=== PATIENT | male | born 1955 | race Caucasian/White ===

== ENCOUNTER 2018-12-05 16:49 | Outpatient (CLI) ==
[2013-08-16 06:11] VITALS: BMI 31.8
== END 2018-12-05 17:11 | disposition short-term general hospital (02) ==
LOC: AMBL 16:49
PROVIDERS: ATTEND Emergency Medicine
DX: R55 Syncope and collapse (principal); R00.0 Tachycardia, unspecified; R73.9 Hyperglycemia, unspecified

== ENCOUNTER 2023-12-02 14:59 | Inpatient (IN) ==
[2023-12-02 15:20] VITALS: BMI 29.9
--- NOTE | 2023-12-02 16:05 | ED.PDOC ---
General ED Provider: Dr. KALEIGH STEPHENS MD Chief Complaint: Dizziness Stated Complaint: 68 years old male past medical history of liver cirrhosis secondary to liver disease, BPH coming to the emergency room for altered mental status. As per patient's friend patient was at the bank and he seemed to be confused did not know the time or the year and the patient has been more confused lately she was brought into the emergency room for evaluation. Patient is awake and alert to self and place but not to time he denies any chest pain, shortness of breath, headache, abdominal pain, nausea, vomiting, changes in bowel or urine. Time Seen by Provider: 12/02/23 15:07 Information Source: Patient Primary Care Provider: JULIO C HART Nursing and Triage Documentation Reviewed and Agree: Yes What is Opioid Naive?: *Opioid Naive implies the patient is not already taking opioids or not chronically receiving opioids on a daily basis. *PRN dosing is not "usually" associated with tolerance. *Patients are at higher risk of over-sedation and aspiration. What is Opioid Tolerant?: *Opioid Tolerance implies less than the expected response to an opioid. *Acquired tolerance is defined by the patient taking 60mg of oral morphine daily (or equianalgesic dose of another opioid) for 1 week or more. *Often associated with chronic pain. *May take more than usual dose to achieve desired pain control. Review of Systems Review Of Systems Constitutional: Reports No symptoms [facility] Medical History Failure of fundoplication Esophagogasatric Fundoplication: History of tif procedure with GI bleed. K91.89 - Other postprocedural complications and disorders of digestive system (ICD-10) Hypertension I10 - Essential (primary) hypertension (ICD-10) Hyperlipidemia E78.5 - Hyperlipidemia, unspecified (ICD-10) Fatty liver K76.0 - Fatty (change of) liver, not elsewhere classified (ICD-10) Diabetes mellitus E11.9 - Type 2 diabetes mellitus without complications (ICD-10) Arthritis M19.90 - Unspecified osteoarthritis, unspecified site (ICD-10) Social History Smoking and tobacco status: Former smoker Surgical History History of fundoplication Z98.890 - Other specified postprocedural states (ICD-10) H/O endoscopy Z98.890 - Other specified postprocedural states (ICD-10) History of cardiac catheterization WNL Z98.890 - Other specified postprocedural states (ICD-10) Physical Exam Physical Exam Appearance: Reports Well-appearing Respiratory: Reports Airway patent, Breath sounds clear and Breath sounds equal Cardiovascular: Reports RRR, Pulses normal, No rub and No murmur GI/: Reports Soft, Nontender, No masses and Bowel sounds normal Musculoskeletal: Reports Normal strength, ROM intact and Edema (Bilateral lower extremities) Skin: Reports Warm and Normal color Neurological: Reports Sensation intact and Motor intact Psychiatric: Reports Affect appropriate Interpretation EKG Interpretation EKG Interpretation By: ED Physician Time of EKG #1: 15:53 Rate: Normal Rhythm: Sinus Ectopy: None [place]: NL Interpretation: RBBB, no signs of acute ischemia Course Course 12/02/23 16:11 12/02/23 16:11 Orders, Labs, Meds: Lab Review 12/02/23 16:11 WBC 3.91 L RBC 4.04 L Hgb 12.4 L Hct 36.1 L MCV 89.4 MCH 30.7 MCHC 34.3 RDW Coeff of Luis Daniel 16.1 H Plt Count 129 L Immature Gran % (Auto) 0.3 Neut % (Auto) 54.5 Lymph % (Auto) 26.6 [place] % (Auto) 11.0 H Eos % (Auto) 6.1 Baso % (Auto) 1.5 Neut # (Auto) 2.1 Lymph # (Auto) 1.0 [place] # (Auto) 0.4 Eos # (Auto) 0.2 Baso # (Auto) 0.1 Immature Gran # (Auto) 0.0 Sodium 139.7 Potassium 3.55 Chloride 112.8 H Carbon Dioxide 18.3 L Anion Gap 12.15 BUN 13.9 Creatinine 0.83 Estimated GFR (MDRD) 92.00 BUN/Creatinine Ratio 16.74 Glucose 187.4 H Lactic Acid 3.94 H Calcium 8.87 Total Bilirubin 3.54 H AST 36.3 ALT 22.5 Alkaline Phosphatase 54.9 L Ammonia 116.7 H Troponin I < 0.012 NT-Pro-B Natriuret Pep 321 H Total Protein 5.94 L Albumin 3.37 L Globulin 2.57 Albumin/Globulin Ratio 1.31 Orders Category Date Time Status EKG-(ED ONLY) Stat CARDIO 12/02/23 15:50 Ordered ACTIVITY .Up With Assistance CARE 12/02/23 17:02 Active GIVE HS SNACK 2100 CARE 12/02/23 17:03 Active INTAKE & OUTPUT Q8HR CARE 12/02/23 17:02 Active IP: INSERT SALINE LOCK ONCE CARE 12/02/23 17:02 Active IV ACCESS ONCE CARE 12/02/23 15:50 Active VITAL SIGNS Q4HR CARE 12/02/23 17:03 Active ADA 1800 DOMINIC. DIET DIETARY 12/02/23 Dinner Ordered HS SNACK DIETARY 12/02/23 Dinner Ordered AMMONIA Routine LAB 12/03/23 06:00 Ordered AMMONIA Stat LAB 12/02/23 16:11 Completed BLOOD CULTURE Stat LAB 12/02/23 16:11 Received CBC W/ AUTO DIFF DAILY@0600 LAB 12/03/23 06:00 Ordered CBC W/ AUTO DIFF DAILY@0600 LAB 12/04/23 06:00 Ordered CBC W/ AUTO DIFF Stat LAB 12/02/23 16:11 Completed CMP [COMPREHENSIVE METABOLIC PANEL] Stat LAB 12/02/23 16:11 Completed COMPREHENSIVE METABOLIC PANEL DAILY@0600 LAB 12/03/23 06:00 Ordered COMPREHENSIVE METABOLIC PANEL DAILY@0600 LAB 12/04/23 06:00 Ordered COVID [SARS COV-2 RNA RAPID KELSEY] Stat LAB 12/02/23 16:45 Received LACTIC ACID Stat LAB 12/02/23 16:11 Completed NT-PROBNP(ED) Stat LAB 12/02/23 16:11 Completed TROPONIN I Stat LAB 12/02/23 16:11 Completed URINALYSIS C & S IF INDICATED Stat LAB 12/02/23 15:48 Uncollected URINE DRUG SCREEN (RAPID FOR ED) [DRUG SCREEN, URINE, LAB 12/02/23 16:05 Uncollected RAPID] Stat Lactulose Meds 12/02/23 01:00 Ordered 20 gm PO Q8HR Lactulose Meds 12/02/23 16:39 Discontinued 30 gm PO ONCE STA CT HEAD W/O CONTRAST Stat RADS 12/02/23 15:48 Completed CXR [CHEST, 1V AP ONLY] Stat RADS 12/02/23 15:48 Completed US VENOUS SCAN CORRIE LEGS [U/S VENOUS SCAN CORRIE LEGS] Stat RADS 12/02/23 16:02 Completed Medications Generic Name Dose Route Start Last Admin Trade Name Saadia PRN Reason Stop Dose Admin Lactulose 20 gm 12/02/23 01:00 Lactulose 20 Gm/30 Ml Cup PO Q8HR JACQUELYN Discontinued Medications Generic Name Dose Route Start Last Admin Trade Name Saadia PRN Reason Stop Dose Admin Lactulose 30 gm 12/02/23 16:39 Lactulose 20 Gm/30 Ml Cup PO 12/02/23 16:40 ONCE STA Vital Signs: Temp Pulse Resp BP Pulse Ox 12/02/23 15:06 97.7 F 70 18 143/61 H 99 Labs showing ammonia of 116.7 which is the cause of the patient's confusion patient was given lactulose 30 mg p.o. once patient will need to be admitted for further treatment and monitoring the ammonia level. CAT scan of the head without contrast as per the lead interpretation did not show any acute findings chest x-ray also did not show any acute cardiothoracic abnormality. Called the hospitalist on-call Aileen discussed the patient case with her and she accepted the patient to be admitted under her services Discharge Plan Discharge Patient Disposition: ADMITTED INPATIENT Discharge Problem: Encephalopathy, hepatic Prescriptions: No Action pravastatin [Pravachol] 80 MG tablet 80 mg PO QPM Jardiance 10 mg tablet 10 mg PO DAILY glipizide 10 mg tablet 10 mg PO BID Rx Instructions: Before meals. tamsulosin 0.4 mg capsule 0.4 mg PO DAILY cholecalciferol (vitamin D3) 25 mcg (1,000 unit) capsule 25 mcg PO DAILY Xifaxan 550 mg tablet 550 mg PO Q12H metoprolol tartrate 50 mg Tablet 75 mg PO BID Qty: 60 0RF losartan 100 mg tablet 100 mg PO DAILY allopurinol 100 mg Tablet 100 mg PO DAILY Did you review [place] [employer] for ALL controlled substances?: Not Applicable ED Provider: KALEIGH STEPHENS Condition: Stable
[2023-12-02 16:25] LABS: BASOPHILS # (AUTO) 0.1 K/uL (0-0.2); BASOPHILS % (AUTO) 1.5 % (0.0-3.0); EOSINOPHILS # (AUTO) 0.2 K/ul (0.0-0.7); EOSINOPHILS % (AUTO) 6.1 % (0.0-7.0); HEMATOCRIT 36.1 % (42.0-52.0); HEMOGLOBIN 12.4 g/dl (14.0-18.0); IMMATURE GRANULOCYTE % (AUTO) 0.3 % (0.0-5.0); LYMPHOCYTES % (AUTO) 26.6 (10.0-50.0); MEAN CORPUSCULAR HEMOGLOBIN 30.7 pg (27.0-31.0); MEAN CORPUSCULAR HGB CONC 34.3 (31.8-35.4); MEAN CORPUSCULAR VOLUME 89.4 fl (80.0-94.0); MONOCYTES # (AUTO) 0.4 K/uL (0.4-2.0); NEUTROPHILS # (AUTO) 2.1 K/ul (2.0-6.9); NEUTROPHILS % (AUTO) 54.5 % (42.2-75.2); PLATELET COUNT 129 10^3/uL (140-440); RDW COEFFICIENT OF VARIATION 16.1 % (11.6-14.8); RED BLOOD COUNT 4.04 10^6/ul (4.70-6.10); WHITE BLOOD COUNT 3.91 K/ul (4.2-10.2)
[2023-12-02 16:28] LABS: ALANINE AMINOTRANSFERASE 22.5 U/L (0-50); ALBUMIN 3.37 g/dL (3.5-5.0); ALKALINE PHOSPHATASE 54.9 U/L (56-119); ASPARTATE AMINO TRANSFERASE 36.3 U/L (17-59); BILIRUBIN,TOTAL 3.54 mg/dL (0.2-1.3); BLOOD UREA NITROGEN 13.9 mg/dL (9-20); CALCIUM 8.87 mg/dL (8.4-10.2); CARBON DIOXIDE 18.3 mmol/L (22-30.0); CHLORIDE 112.8 mmol/L (98-107); CREATININE 0.83 mg/dL (0.60-1.10); GLUCOSE 187.4 mg/dL (74-106); POTASSIUM 3.55 mmol/L (3.5-5.1); SODIUM 139.7 mmol/L (134.5-145); TOTAL PROTEIN 5.94 g/dL (6.3-8.2)
[2023-12-02 16:39] LABS: TROPONIN I < 0.012 ng/ml (0.0000-0.120)
--- NOTE | 2023-12-02 16:41 | CT ---
EXAM: CT HEAD WITHOUT CONTRAST HISTORY: Confusion COMPARISON: None TECHNIQUE: Multi-slice transaxial images are acquired through the head with 2-D reconstructed images . All CT scans are performed using dose optimization techniques as appropriate to the performed exam and includes at least one of the following: Automated exposure control, adjustment of the mA and/or kV according to size, and the use of iterative reconstruction technique. FINDINGS: The midline structures are central. The ventricles and sulci are slightly prominent. The re is suggestion of minimal low attenuation in the periventricular white matter. The brain attenuati on has a normal rollins-white matter interface. No acute intraparenchymal or extraaxial hemorrhage. The calvarium is intact. The paranasal sinuses and mastoid air cells are clear in their visualized p ortions. IMPRESSION: 1. No acute intracranial process. 2. Small vessel disease and involutional changes. . All CT scans are performed using dose optimization techniques as appropriate to the performed exam an d include at least one of the following: Automated exposure control, adjustment of the mA and/or kV according t o size, and the use of iterative reconstruction technique.
--- NOTE | 2023-12-02 16:43 | DI ---
EXAM: CHEST RADIOGRAPH (1 VIEW) TECHNIQUE: Frontal Chest Radiograph. HISTORY: Cough COMPARISON: None. FINDINGS: Lines, Tubes, Devices: None Lungs and Pleura: No focal consolidation. No pleural effusion. No pneumothorax. Cardiac silhouette: Normal. Bones: No acute abnormality. IMPRESSION: No acute radiographic abnormality. If symptoms persist, follow-up imaging is recommended.
--- NOTE | 2023-12-02 17:02 | US ---
EXAM: BILATERAL LOWER EXTREMITY DEEP VENOUS ULTRASOUND WITH DOPPLER IMAGING HISTORY: Bilateral leg pain and swelling. Right worse than left. TECHNIQUE: Mayes-scale ultrasound with compression maneuvers and color and spectral Doppler ultrasound at rest and with augmentation of the veins was performed. Images were obtained and stored in a perm anent archive. COMPARISON: None. FINDINGS: RIGHT LOWER EXTREMITY: Common Femoral Vein: Normal compression. Normal flow on color Doppler images. Normal response to au gmentation. Deep Femoral Vein: Normal compression. Normal flow on color Doppler images. Normal response to augm entation. Femoral Vein: Normal compression. Normal flow on color Doppler images. Normal response to augmentat ion. Popliteal Vein: Normal compression. Normal flow on color Doppler images. Normal response to augment ation. Peroneal Vein: Normal compression. Normal flow on color Doppler images. Posterior Tibial Vein: Normal compression. Normal flow on color Doppler images. Anterior Tibial Vein: Not visualized. Greater Saphenous Vein (Superficial): Normal compression. Normal flow on color Doppler images. Other: No reflux. LEFT LOWER EXTREMITY: Common Femoral Vein: Normal compression. Normal flow on color Doppler images. Normal response to au gmentation. Deep Femoral Vein: Normal compression. Normal flow on color Doppler images. Normal response to augm entation. Femoral Vein: Normal compression. Normal flow on color Doppler images. Normal response to augmentat ion. Popliteal Vein: Normal compression. Normal flow on color Doppler images. Normal response to augment ation. Peroneal Vein: Normal compression. Normal flow on color Doppler images. Posterior Tibial Vein: Normal compression. Normal flow on color Doppler images. Anterior Tibial Vein: Not visualized. Greater Saphenous Vein (Superficial): Normal compression. Normal flow on color Doppler images. Other: No reflux. IMPRESSION: 1. No deep venous thrombosis (DVT) in the right or left lower extremity. 2. No superficial venous thrombosis (SVT) in the right or left lower extremity. *Note: Anticoagulation for SVT can be considered only if greater than or equal to 5 cm in length. (https://journal.chestnet.org/[email or web address]/[id number])
[2023-12-02 17:09] LABS: SARS COV-2 RNA RAPID NAAT NEGATIVE (NEGATIVE)
[2023-12-02 17:55] LABS: BILIRUBIN,URINE Negative (NEGATIVE); CLARITY,URINE Clear (CLEAR); COLOR,URINE Yellow (YELLOW); GLUCOSE, URINE (UA) 2+ (NEGATIVE); KETONES,URINE Negative (NEGATIVE); LEUKOCYTE ESTERASE ,URINE Negative (NEGATIVE); NITRITE,URINE Negative (NEGATIVE); PROTEIN,URINE Negative (NEGATIVE); URINE, BLOOD Negative (NEGATIVE); UROBILINOGEN,URINE 0.2 (0.2)
[2023-12-02] MEDS: LACTULOSE PO STA ×2 (17:55→22:07)
[2023-12-02 18:03] LABS: AMPHETAMINE SCREEN,URINE NEGATIVE (NEGATIVE); BARBITURATE SCREEN,URINE NEGATIVE (NEGATIVE); BENZODIAZEPINES SCREEN,URINE NEGATIVE (NEGATIVE); CANNABINOID SCREEN,URINE NEGATIVE (NEGATIVE); COCAIN SCREEN,URINE NEGATIVE (NEGATIVE); METHADONE URINE SCREEN NEGATIVE (NEGATIVE); METHAMPHETAMINES SCREEN,URINE NEGATIVE (NEGATIVE); OPIATE SCREEN,URINE NEGATIVE (NEGATIVE); OXYCODONE URINE SCREEN NEGATIVE (NEGATIVE); PHENCYCLIDINE SCREEN,URINE NEGATIVE (NEGATIVE); TRICYCLIC ANTIDEPRESSANTS URIN NEGATIVE (NEGATIVE)
[2023-12-02] MEDS: LACTULOSE PO ONE (19:00)
[2023-12-02] MEDS: LACTULOSE PO SCH (19:08)
[2023-12-02] MEDS ORDERED: HUMALOG (3 ML) SUBCUT PRN (21:11)
[2023-12-02] MEDS: XIFAXAN PO SCH (21:56)
[2023-12-02] MEDS: LOPRESSOR PO SCH (21:56)
[2023-12-02] MEDS: PRAVACHOL PO SCH (21:56)
[2023-12-03 05:11] VITALS: BP 156/79; PULSE 63; RESP 16; TEMP 97.1
[2023-12-03] MEDS: LACTULOSE PO SCH (05:17)
[2023-12-03 05:35] LABS: BASOPHILS # (AUTO) 0.1 K/uL (0-0.2); BASOPHILS % (AUTO) 1.4 % (0.0-3.0); EOSINOPHILS # (AUTO) 0.3 K/ul (0.0-0.7); HEMOGLOBIN 12.9 g/dl (14.0-18.0); IMMATURE GRANULOCYTE % (AUTO) 0.2 % (0.0-5.0); LYMPHOCYTES # (AUTO) 1.3 K/uL (0.60-3.4); LYMPHOCYTES % (AUTO) 30.3 (10.0-50.0); MEAN CORPUSCULAR HEMOGLOBIN 31.3 pg (27.0-31.0); MEAN CORPUSCULAR HGB CONC 34.9 (31.8-35.4); MEAN CORPUSCULAR VOLUME 89.8 fl (80.0-94.0); MONOCYTES # (AUTO) 0.5 K/uL (0.4-2.0); NEUTROPHILS # (AUTO) 2.1 K/ul (2.0-6.9); NEUTROPHILS % (AUTO) 50.1 % (42.2-75.2); PLATELET COUNT 123 10^3/uL (140-440); RDW COEFFICIENT OF VARIATION 16.4 % (11.6-14.8); RED BLOOD COUNT 4.12 10^6/ul (4.70-6.10); WHITE BLOOD COUNT 4.26 K/ul (4.2-10.2)
[2023-12-03 05:47] LABS: ALANINE AMINOTRANSFERASE 22.7 U/L (0-50); ALBUMIN 3.44 g/dL (3.5-5.0); ALKALINE PHOSPHATASE 56.1 U/L (56-119); ASPARTATE AMINO TRANSFERASE 37.7 U/L (17-59); BILIRUBIN,TOTAL 3.58 mg/dL (0.2-1.3); BLOOD UREA NITROGEN 11.6 mg/dL (9-20); CALCIUM 8.97 mg/dL (8.4-10.2); CHLORIDE 113.2 mmol/L (98-107); CREATININE 0.77 mg/dL (0.60-1.10); GLUCOSE 96.8 mg/dL (74-106); POTASSIUM 3.46 mmol/L (3.5-5.1); SODIUM 142.4 mmol/L (134.5-145); TOTAL PROTEIN 6.08 g/dL (6.3-8.2)
[2023-12-03] MEDS: FLOMAX PO SCH (08:26)
[2023-12-03] MEDS: THIAMINE PO SCH (08:26)
[2023-12-03] MEDS: JARDIANCE PO SCH (08:27)
[2023-12-03] MEDS: PROTONIX PO SCH (08:27)
[2023-12-03] MEDS: ZYLOPRIM PO SCH (08:27)
[2023-12-03] MEDS: XIFAXAN PO SCH (08:27)
[2023-12-03] MEDS: COZAAR PO SCH (08:28)
--- NOTE | 2023-12-03 09:05 | PCM.SS ---
Provider Provider: HANS DUKES PA-C, [facility] Admission Date Admission Date: 12/02/23 Discharge Date Discharge Date: 12/03/23 Primary Care Physician Primary Care Physician: JULIO C HART Chief Complaint Reason For Visit: HEPATIC ENCEPHALOPATHY History of Present Illness History of Present Illness: Admitted 12/02/23 20:18, this 68 year old /WHITE/M with pmhx of cirrhosis with varices, hx of TIPS procedure, gastric ulcers, hyperlipidemia, hypertension, DMT2, who presents to the ER with dizziness and worsening confusion. Patient is unsure of timeline of events. It was reported to the ER that he was at the bank really confused recently. Patient was found to have ammonia >100. Other labs and imaging were baselined. Lactic acid was elevated, but no sign of infection. He was given lactulose in the ER. Patient was admitted to [facility]. Patient was continued on lactulose once on the floor and had multiple BMs. This morning patient's ammonia is 55 and he is back to his baseline mentation. States he's feeling much better. He sees GI at [facility], most recently saw them 10/25. Reviewing the note, the [employer] TECHNICIAN prescribed lactulose but the patient isn't sure why he never picked it up. We discussed starting lactulose bid, can adjust based on his BMs, goal is 2 stools per day. Patient understands and will start it. He states he is compliant with his xifaxin. He will also f/u with pcp. [facility] Medical History Failure of fundoplication Esophagogasatric Fundoplication: History of tif procedure with GI bleed. K91.89 - Other postprocedural complications and disorders of digestive system (ICD-10) Hypertension I10 - Essential (primary) hypertension (ICD-10) Hyperlipidemia E78.5 - Hyperlipidemia, unspecified (ICD-10) Fatty liver K76.0 - Fatty (change of) liver, not elsewhere classified (ICD-10) Diabetes mellitus E11.9 - Type 2 diabetes mellitus without complications (ICD-10) Arthritis M19.90 - Unspecified osteoarthritis, unspecified site (ICD-10) Surgical History History of fundoplication Z98.890 - Other specified postprocedural states (ICD-10) H/O endoscopy Z98.890 - Other specified postprocedural states (ICD-10) History of cardiac catheterization WNL Z98.890 - Other specified postprocedural states (ICD-10) Social History Smoking and tobacco status: Former smoker Medications Mecications: Medications at Discharge (Home Meds & RX) pravastatin 80 mg tablet (Pravachol) 80 mg PO QPM 08/16/13 allopurinol 100 mg tablet 100 mg PO DAILY 08/03/21 cholecalciferol (vitamin D3) 25 mcg (1,000 unit) capsule 25 mcg PO DAILY 08/15/23 empagliflozin 10 mg tablet (Jardiance) 10 mg PO DAILY 08/15/23 glipizide 10 mg tablet 10 mg PO BID 08/15/23 rifaximin 550 mg tablet (Xifaxan) 550 mg PO Q12H 08/15/23 tamsulosin 0.4 mg capsule 0.4 mg PO DAILY 08/15/23 metoprolol tartrate 50 mg tablet 75 mg (1.5 x 50 mg) PO BID #60 tabs 08/18/23 losartan 100 mg tablet 100 mg PO DAILY 09/09/23 cetirizine 10 mg tablet (24Hour Allergy) 10 mg PO DAILY PRN allergy symptoms 12/02/23 metformin 1,000 mg tablet 1,000 mg PO BID 12/02/23 pantoprazole 40 mg tablet,delayed release 40 mg PO BID 12/02/23 thiamine HCl (vitamin B1) 100 mg tablet (Vitamin B-1) 100 mg PO DAILY 12/02/23 Allergies Allergies Allergy/AdvReac Type Severity Reaction Status Date / Time No Known Allergies Allergy Verified 12/02/23 15:20 Review of Systems Constitutional: Reports Fatigue and Weakness Head: Reports Normocephalic and Atraumatic Cardiovascular: Reports Edema; Denies Chest pain Respiratory: Denies Cough or Shortness of air Gastrointestinal: Denies Nausea, Vomiting, Diarrhea, Abdominal pain or Melena Genitourinary: Denies Dysuria or Hematuria Neurological: Reports Dizziness, Memory Loss and Other (+confusion ) Physical Examination Appearance: Positive No Apparent Distress and Alert and Oriented x3 Head: Positive Normocephalic and Atraumatic Heart: Positive RRR Respiratory: Positive Breath Sounds Clear, Bilaterally and Respirations Nonlabored; Negative Crackles, Rhonchi or Wheezes GI/: Positive Soft, Nontender, Bowel sounds normal and No Distention Extremities: Positive Edema (1+ pitting edema alis, chronic/baseline per patient ) Neurological: Positive Cranial nerves intact, Alert and Oriented Psychiatric: Positive Normal Judgement, Normal Insight and Affect Appropriate Vital Signs (Last 4 Hours) Vital Signs Last 4 Hours: Vital Signs: Last 4 Hours 12/03/23 05:10 Temperature 97.1 F L Temperature Source Temporal Artery Scan Pulse Rate 63 Respiratory Rate 16 Blood Pressure 156/79 H Blood Pressure Mean 104 Blood Pressure Location Right Arm Blood Pressure Position Sitting O2 Sat by Pulse Oximetry 99 Oxygen Delivery Method Room Air Labs This Visit Labs This Visit: Labs This Visit 12/02/23 12/02/23 12/02/23 16:11 16:45 17:45 WBC 3.91 L RBC 4.04 L Hgb 12.4 L Hct 36.1 L MCV 89.4 MCH 30.7 MCHC 34.3 RDW Coeff of Luis Daniel 16.1 H Plt Count 129 L Immature Gran % (Auto) 0.3 Neut % (Auto) 54.5 Lymph % (Auto) 26.6 [place] % (Auto) 11.0 H Eos % (Auto) 6.1 Baso % (Auto) 1.5 Neut # (Auto) 2.1 Lymph # (Auto) 1.0 [place] # (Auto) 0.4 Eos # (Auto) 0.2 Baso # (Auto) 0.1 Immature Gran # (Auto) 0.0 Sodium 139.7 Potassium 3.55 Chloride 112.8 H Carbon Dioxide 18.3 L Anion Gap 12.15 BUN 13.9 Creatinine 0.83 Estimated GFR (MDRD) 92.00 BUN/Creatinine Ratio 16.74 Glucose 187.4 H Lactic Acid 3.94 H Calcium 8.87 Total Bilirubin 3.54 H AST 36.3 ALT 22.5 Alkaline Phosphatase 54.9 L Ammonia 116.7 H Troponin I < 0.012 NT-Pro-B Natriuret Pep 321 H Total Protein 5.94 L Albumin 3.37 L Globulin 2.57 Albumin/Globulin Ratio 1.31 Urine Color Yellow Urine Clarity Clear Urine pH 6.0 Ur Specific [place] 1.015 Urine Protein Negative Urine Glucose (UA) 2+ H Urine Ketones Negative Urine Blood Negative Urine Nitrite Negative Urine Bilirubin Negative Urine Urobilinogen 0.2 Ur Leukocyte Esterase Negative Urine Opiates Screen Negative Ur Oxycodone Screen Negative Urine Methadone Screen Negative Ur Barbiturates Screen Negative U Tricyclic Antidepress Negative Ur Phencyclidine Scrn Negative Ur Amphetamine Screen Negative U Methamphetamines Scrn Negative U Benzodiazepines Scrn Negative Urine Cocaine Screen Negative U Cannabinoids Screen Negative SARS CoV-2 RNA Rapid KELSEY Negative 12/03/23 05:28 WBC 4.26 RBC 4.12 L Hgb 12.9 L Hct 37.0 L MCV 89.8 MCH 31.3 H MCHC 34.9 RDW Coeff of Luis Daniel 16.4 H Plt Count 123 L Immature Gran % (Auto) 0.2 Neut % (Auto) 50.1 Lymph % (Auto) 30.3 [place] % (Auto) 11.0 H Eos % (Auto) 7.0 Baso % (Auto) 1.4 Neut # (Auto) 2.1 Lymph # (Auto) 1.3 [place] # (Auto) 0.5 Eos # (Auto) 0.3 Baso # (Auto) 0.1 Immature Gran # (Auto) 0.0 Sodium 142.4 Potassium 3.46 L Chloride 113.2 H Carbon Dioxide 22.0 Anion Gap 10.66 BUN 11.6 Creatinine 0.77 Estimated GFR (MDRD) 101.00 BUN/Creatinine Ratio 15.06 Glucose 96.8 D Lactic Acid Calcium 8.97 Total Bilirubin 3.58 H AST 37.7 ALT 22.7 Alkaline Phosphatase 56.1 Ammonia 55.0 H Troponin I NT-Pro-B Natriuret Pep Total Protein 6.08 L Albumin 3.44 L Globulin 2.64 Albumin/Globulin Ratio 1.30 Urine Color Urine Clarity Urine pH Ur Specific [place] Urine Protein Urine Glucose (UA) Urine Ketones Urine Blood Urine Nitrite Urine Bilirubin Urine Urobilinogen Ur Leukocyte Esterase Urine Opiates Screen Ur Oxycodone Screen Urine Methadone Screen Ur Barbiturates Screen U Tricyclic Antidepress Ur Phencyclidine Scrn Ur Amphetamine Screen U Methamphetamines Scrn U Benzodiazepines Scrn Urine Cocaine Screen U Cannabinoids Screen SARS CoV-2 RNA Rapid KELSEY Imaging Imaging: EXAM: CHEST RADIOGRAPH (1 VIEW) TECHNIQUE: Frontal Chest Radiograph. HISTORY: Cough COMPARISON: None. FINDINGS: Lines, Tubes, Devices: None Lungs and Pleura: No focal consolidation. No pleural effusion. No pneumothorax. Cardiac silhouette: Normal. Bones: No acute abnormality. IMPRESSION: No acute radiographic abnormality. If symptoms persist, follow-up imaging is recommended. EXAM: CT HEAD WITHOUT CONTRAST HISTORY: Confusion COMPARISON: None TECHNIQUE: Multi-slice transaxial images are acquired through the head with 2-D reconstructed images. All CT scans are performed using dose optimization techniques as appropriate to the performed exam and includes at least one of the following: Automated exposure control, adjustment of the mA and/or kV according to size, and the use of iterative reconstruction technique. FINDINGS: The midline structures are central. The ventricles and sulci are slightly prominent. There is suggestion of minimal low attenuation in the periventricular white matter. The brain attenuation has a normal rollins-white matter interface. No acute intraparenchymal or extraaxial hemorrhage. The calvarium is intact. The paranasal sinuses and mastoid air cells are clear in their visualized portions. IMPRESSION: 1. No acute intracranial process. 2. Small vessel disease and involutional changes. Review Review Statement: I have independently reviewed and interpreted the labs/EKGs/imaging that were ordered by the ER provider. I have reviewed all outside records that are available currently in our EMR including imaging/notes/labs from previous visits. Plan Reccomendations/Plan: 1. Acute hepatic encephalopathy in setting of cirrhosis - Cont xifaxan. Cont lactulose q2hrs until having BMs, then q8hsr. F/u with GI outpatient. 2. Hypertension - Cont home meds 3. GERD with gastric ulcers - Cont home meds 4. BPH - Cont home meds 5. DMT2 - Hold meformin and glipizide. Accuchecks achs. Diabetic diet. Humalog ss scale. Patient was continued on lactulose once on the floor and had multiple BMs. This morning patient's ammonia is 55 and he is back to his baseline mentation. States he's feeling much better. He sees GI at [facility], most recently saw them 10/25. Reviewing the note, the [employer] TECHNICIAN prescribed lactulose but the patient isn't sure why he never picked it up. We discussed starting lactulose bid, can adjust based on his BMs, goal is 2 stools per day. Patient understands and will start it. He states he is compliant with his xifaxin. He will also f/u with pcp. Patient improved quicker than expected. Discharge diagnoses: 1. Acute hepatic encephalopathy in setting of cirrhosis - resolved 2. Hypertension 3. GERD 4. BPH 5. DMT2 Additional Planning: Case discussed with ED Physician, Dr. Champion. DVT Prophylaxis: Ambulation Advanced Care Plannin minutes spent discussing advance care planning. Admit to: Inpatient Discussed Plan of Care with Dr. Lynn Marin. Review With Patient Reviewed with Patient and Family: Patient and family have been counseled on condition and care plan and have no immediate questions. I have personally discussed and reviewed the patient's visit/current labs/imaging/decision making with Dr. Lynn Marin, my supervising attending. Total number of minutes spent with patient [ ] min. More than 50% of the time spent with this patient was devoted to counseling and coordination of care. Time of Admission:12/02/23 20:18 Time of Discharge: 12/03/23 0915 Discharge Plan Discharge Discharge Orders: Discharge Patient (ONCE); Ordered 12/03/23 Ordered By: HANS DUKES Activity Restrictions/Additional Instructions: DISCHARGE TO HOME DX: HEPATIC ENCEPHALOPATHY IN SETTING OF CIRRHOSIS DIET: DIABETIC ACTIVITY: TOLERATED PHARMACY: [facility] TAKE LACTULOSE TWICE A DAY WITH GOAL OF 2 STOOLS PER DAY FOLLOW UP WITH GI AND PCP Instructions: Hepatic Encephalopathy (DC) Care Plan Goals: Problem: Altered Behavioral Pattern Goal: Exhibit appropriate behavior Instructions: Express feelings to family, friends, or others you trust Seek medical assistance if you feel unsafe Patient Disposition: HOME SELF-CARE Prescriptions: New lactulose 10 gram/15 mL (15 mL) solution 20 g PO BID Qty: 1800 0RF Continued pravastatin [Pravachol] 80 MG tablet 80 mg PO QPM Jardiance 10 mg tablet 10 mg PO DAILY glipizide 10 mg tablet 10 mg PO BID Rx Instructions: Before meals. tamsulosin 0.4 mg capsule 0.4 mg PO DAILY cholecalciferol (vitamin D3) 25 mcg (1,000 unit) capsule 25 mcg PO DAILY Xifaxan 550 mg tablet 550 mg PO Q12H metoprolol tartrate 50 mg Tablet 75 mg PO BID Qty: 60 0RF losartan 100 mg tablet 100 mg PO DAILY pantoprazole 40 mg tablet,delayed release (DR/EC) 40 mg PO BID metformin 1,000 mg tablet 1,000 mg PO BID cetirizine [24Hour Allergy] 10 mg tablet 10 mg PO DAILY PRN (Reason: allergy symptoms) thiamine HCl (vitamin B1) [Vitamin B-1] 100 mg tablet 100 mg PO DAILY allopurinol 100 mg Tablet 100 mg PO DAILY Did you review [place] [employer] for ALL controlled substances?: Not Applicable Discussed opioids are addictive and Narcan is available by prescription or from pharmacy.: No Condition: Stable
== END 2023-12-03 10:20 | disposition home or self-care (01) | DRG 72 ==
LOC: ED 14:59 → MEDSURG B 14:59
PROVIDERS: ADMIT Hospitalist; ATTEND Physician Assistant
DX: K21.9 Gastro-esophageal reflux disease without esophagitis; R42 Dizziness and giddiness; I10 Essential (primary) hypertension; E11.9 Type 2 diabetes mellitus without complications; E78.5 Hyperlipidemia, unspecified; K74.60 Unspecified cirrhosis of liver; N40.0 Benign prostatic hyperplasia without lower urinary tract symptoms; G93.49 Other encephalopathy

== ENCOUNTER 2024-02-07 13:26 | Inpatient (IN) ==
[2024-02-07 16:32] LABS: BASOPHILS # (AUTO) 0.1 K/uL (0-0.2); BASOPHILS % (AUTO) 1.9 % (0.0-3.0); EOSINOPHILS # (AUTO) 0.2 K/ul (0.0-0.7); EOSINOPHILS % (AUTO) 4.5 % (0.0-7.0); HEMATOCRIT 38.8 % (42.0-52.0); HEMOGLOBIN 13.3 g/dl (14.0-18.0); IMMATURE GRANULOCYTE % (AUTO) 0.2 % (0.0-5.0); LYMPHOCYTES # (AUTO) 1.1 K/uL (0.60-3.4); LYMPHOCYTES % (AUTO) 24.2 (10.0-50.0); MEAN CORPUSCULAR HEMOGLOBIN 32.4 pg (27.0-31.0); MEAN CORPUSCULAR HGB CONC 34.3 (31.8-35.4); MEAN CORPUSCULAR VOLUME 94.6 fl (80.0-94.0); MONOCYTES # (AUTO) 0.5 K/uL (0.4-2.0); MONOCYTES % (AUTO) 9.6 (0-10); NEUTROPHILS # (AUTO) 2.8 K/ul (2.0-6.9); NEUTROPHILS % (AUTO) 59.6 % (42.2-75.2); PLATELET COUNT 139 10^3/uL (140-440); RDW COEFFICIENT OF VARIATION 15.9 % (11.6-14.8); WHITE BLOOD COUNT 4.71 K/ul (4.2-10.2)
[2024-02-07 16:44] LABS: ALANINE AMINOTRANSFERASE 24.1 U/L (0-50); ALBUMIN 4.13 g/dL (3.5-5.0); ALKALINE PHOSPHATASE 65.2 U/L (56-119); ASPARTATE AMINO TRANSFERASE 38.3 U/L (17-59); BILIRUBIN,TOTAL 6.02 mg/dL (0.2-1.3); BLOOD UREA NITROGEN 14.7 mg/dL (9-20); CALCIUM 9.35 mg/dL (8.4-10.2); CARBON DIOXIDE 17.3 mmol/L (22-30.0); CHLORIDE 109.9 mmol/L (98-107); CREATININE 0.82 mg/dL (0.60-1.10); GLUCOSE 209.3 mg/dL (74-106); POTASSIUM 3.59 mmol/L (3.5-5.1); SODIUM 140.9 mmol/L (134.5-145); TOTAL PROTEIN 7.02 g/dL (6.3-8.2)
[2024-02-07 16:49] LABS: PARTIAL THROMBOPLASTIN TIME 24.8 SEC (23.9-40.0); PROTHROMBIN TIME 10.9 SEC (9.3-11.0)
[2024-02-07 16:57] LABS: TROPONIN I < 0.012 ng/ml (0.0000-0.120)
--- NOTE | 2024-02-07 17:37 | ED.PDOC ---
General ED Provider: Dr. ANA AVINA DO Chief Complaint: Altered Mental Status Stated Complaint: 68-year-old male presents to the ER with altered mental status. Friend has bring him appear. He states he has Hernandez and sometimes his ammonia level gets elevated and he gets confused. He denies recent illness, fever, chest pain, shortness of breath, abdominal pain, melena, hematochezia, dysuria or hematuria. Time Seen by Provider: 02/07/24 17:00 Information Source: Patient Primary Care Provider: JULIO C HART Nursing and Triage Documentation Reviewed and Agree: Yes What is Opioid Naive?: *Opioid Naive implies the patient is not already taking opioids or not chronically receiving opioids on a daily basis. *PRN dosing is not "usually" associated with tolerance. *Patients are at higher risk of over-sedation and aspiration. What is Opioid Tolerant?: *Opioid Tolerance implies less than the expected response to an opioid. *Acquired tolerance is defined by the patient taking 60mg of oral morphine daily (or equianalgesic dose of another opioid) for 1 week or more. *Often associated with chronic pain. *May take more than usual dose to achieve desired pain control. Review of Systems Review Of Systems Constitutional: Reports No symptoms All Other Systems: Reviewed and Negative [facility] Medical History Failure of fundoplication Esophagogasatric Fundoplication: History of tif procedure with GI bleed. K91.89 - Other postprocedural complications and disorders of digestive system (ICD-10) Hypertension I10 - Essential (primary) hypertension (ICD-10) Hyperlipidemia E78.5 - Hyperlipidemia, unspecified (ICD-10) Fatty liver K76.0 - Fatty (change of) liver, not elsewhere classified (ICD-10) Diabetes mellitus E11.9 - Type 2 diabetes mellitus without complications (ICD-10) Arthritis M19.90 - Unspecified osteoarthritis, unspecified site (ICD-10) Social History Smoking and tobacco status: Former smoker Surgical History History of fundoplication Z98.890 - Other specified postprocedural states (ICD-10) H/O endoscopy Z98.890 - Other specified postprocedural states (ICD-10) History of cardiac catheterization WNL Z98.890 - Other specified postprocedural states (ICD-10) Physical Exam Physical Exam Appearance: Reports Ill-appearing, No pain distress and Well-nourished Ill-appearing: Mild Eyes: Reports CASI, EOMI and Other (Scleral icterus, mild) ENT: Reports Nose normal and Oropharynx normal Neck: Supple Respiratory: Reports Airway patent, Breath sounds clear and Respirations nonlabored Cardiovascular: Reports RRR and Pulses normal GI/: Reports Soft, Nontender and No masses Musculoskeletal: Reports Normal strength, ROM intact and No edema Skin: Reports Warm, Dry and Other (Mildly jaundiced) Neurological: Reports Sensation intact, Motor intact, Reflexes intact, Cranial nerves intact, Alert and Disoriented Psychiatric: Reports Affect appropriate and Mood appropriate NIH Stroke Scale 1a. Level of Consciousness: 0=Alert and keenly responsive 1b. Level of Consciousness Questions: 0=Answers correctly to two questions 1c. Level of Consciousness Commands: 0=Performs two tasks correctly 2. Best Gaze: 0=Normal 3. Visual: 0=No visual loss 4. Facial Palsy: 0=Normal 5a. Motor Left Arm: 0=No drift,arm holds 90 degrees for 10 sec., leg 30 degrees for 5 sec. 5b. Motor Right Arm: 0=No drift,arm holds 90 degrees for 10 sec., leg 30 degrees for 5 sec. 6a. Motor Left Le=No drift,arm holds 90 degrees for 10 sec., leg 30 degrees for 5 sec. 6b. Motor Right Le=No drift,arm holds 90 degrees for 10 sec., leg 30 degrees for 5 sec. 7. Limb Ataxia: 0=Absent 8. Sensory: 0=Normal 9. Best Language: 0=No aphasia 10. Dysarthria: 0=Normal 11. Extincion and Inattention: 0=Normal Stroke Scale Total: 0 Course Course 02/07/24 16:28 02/07/24 16:28 Orders, Labs, Meds: Lab Review 02/07/24 02/07/24 02/07/24 16:28 17:27 17:44 WBC 4.71 RBC 4.10 L Hgb 13.3 L Hct 38.8 L MCV 94.6 H MCH 32.4 H MCHC 34.3 RDW Coeff of Luis Daniel 15.9 H Plt Count 139 L Immature Gran % (Auto) 0.2 Neut % (Auto) 59.6 Lymph % (Auto) 24.2 [place] % (Auto) 9.6 Eos % (Auto) 4.5 Baso % (Auto) 1.9 Neut # (Auto) 2.8 Lymph # (Auto) 1.1 [place] # (Auto) 0.5 Eos # (Auto) 0.2 Baso # (Auto) 0.1 Immature Gran # (Auto) 0.0 PT 10.9 INR 1.05 APTT 24.8 Sodium 140.9 Potassium 3.59 Chloride 109.9 H Carbon Dioxide 17.3 L Anion Gap 17.29 BUN 14.7 Creatinine 0.82 Estimated GFR (MDRD) 94.00 BUN/Creatinine Ratio 17.92 Glucose 209.3 H Calcium 9.35 Total Bilirubin 6.02 H AST 38.3 ALT 24.1 Alkaline Phosphatase 65.2 Ammonia 67.8 H Troponin I < 0.012 NT-Pro-B Natriuret Pep 201 Total Protein 7.02 Albumin 4.13 Globulin 2.89 Albumin/Globulin Ratio 1.42 Urine Color Urine Clarity Urine pH Ur Specific [place] Urine Protein Urine Glucose (UA) Urine Ketones Urine Blood Urine Nitrite Urine Bilirubin Urine Urobilinogen Ur Leukocyte Esterase Urine Microscopic RBC Urine Microscopic WBC Ur Squamous Epith Cells Urine Bacteria Urine Opiates Screen Ur Oxycodone Screen Urine Methadone Screen Ur Barbiturates Screen U Tricyclic Antidepress Ur Phencyclidine Scrn Ur Amphetamine Screen U Methamphetamines Scrn U Benzodiazepines Scrn Urine Cocaine Screen U Cannabinoids Screen Influ A Molecular Assay Negative by naat Influ B Molecular Assay Negative by naat SARS CoV-2 RNA Rapid KELSEY Negative 02/07/24 17:58 WBC RBC Hgb Hct MCV MCH MCHC RDW Coeff of Luis Daniel Plt Count Immature Gran % (Auto) Neut % (Auto) Lymph % (Auto) [place] % (Auto) Eos % (Auto) Baso % (Auto) Neut # (Auto) Lymph # (Auto) [place] # (Auto) Eos # (Auto) Baso # (Auto) Immature Gran # (Auto) PT INR APTT Sodium Potassium Chloride Carbon Dioxide Anion Gap BUN Creatinine Estimated GFR (MDRD) BUN/Creatinine Ratio Glucose Calcium Total Bilirubin AST ALT Alkaline Phosphatase Ammonia Troponin I NT-Pro-B Natriuret Pep Total Protein Albumin Globulin Albumin/Globulin Ratio Urine Color Tina Urine Clarity Clear Urine pH 5.5 Ur Specific [place] 1.020 Urine Protein Negative Urine Glucose (UA) 2+ H Urine Ketones Negative Urine Blood Trace-intact H Urine Nitrite Negative Urine Bilirubin Negative Urine Urobilinogen 4.0 H Ur Leukocyte Esterase Negative Urine Microscopic RBC 2-5 Urine Microscopic WBC 2-5 Ur Squamous Epith Cells 0-2 Urine Bacteria Trace Urine Opiates Screen Negative Ur Oxycodone Screen Negative Urine Methadone Screen Negative Ur Barbiturates Screen Negative U Tricyclic Antidepress Negative Ur Phencyclidine Scrn Negative Ur Amphetamine Screen Negative U Methamphetamines Scrn Negative U Benzodiazepines Scrn Negative Urine Cocaine Screen Negative U Cannabinoids Screen Negative Influ A Molecular Assay Influ B Molecular Assay SARS CoV-2 RNA Rapid KELSEY Orders Category Date Time Status ADMIT OBSERVATION [PLACE PATIENT OBSERVATION] .TO ADMISSION 02/07/24 20:11 Active MEDSURG (NON-MONITORED BED) PLACE PATIENT OBSERVATION .TO MEDSURG (MONITORED BED ADMISSION 02/07/24 20:10 Active ) ACCUCHECK (MED/SURG, SCU) [BLOOD GLUCOSE MONITORING ( CARE 02/07/24 20:13 Active MED/SURG)] 0630,1100,1700,2100 ACTIVITY .Up With Assistance CARE 02/07/24 20:10 Active GIVE HS SNACK 2100 CARE 02/07/24 20:11 Active INTAKE & OUTPUT Q8HR CARE 02/07/24 20:10 Active IP: INSERT SALINE LOCK ONCE CARE 02/07/24 20:10 Active NPO REMINDER: IMAGING ONCE CARE 02/07/24 17:57 Completed TELEMETRY MONITORING TELE CARE 02/07/24 20:11 Active VITAL SIGNS Q4HR CARE 02/07/24 20:11 Active ADA 1800 DOMINIC. DIET DIETARY 02/07/24 Dinner Ordered HS SNACK DIETARY 02/07/24 Dinner Ordered AMMONIA Routine LAB 02/08/24 06:00 Ordered AMMONIA Stat LAB 02/07/24 17:27 Completed CBC W/ AUTO DIFF DAILY@0600 LAB 02/08/24 06:00 Ordered CBC W/ AUTO DIFF DAILY@0600 LAB 02/09/24 06:00 Ordered CBC W/ AUTO DIFF Stat LAB 02/07/24 16:28 Completed CMP [COMPREHENSIVE METABOLIC PANEL] Stat LAB 02/07/24 16:28 Completed COMPREHENSIVE METABOLIC PANEL DAILY@0600 LAB 02/08/24 06:00 Ordered COMPREHENSIVE METABOLIC PANEL DAILY@0600 LAB 02/09/24 06:00 Ordered COVID [SARS COV-2 RNA RAPID KELSEY] Stat LAB 02/07/24 17:44 Completed DRUG SCREEN (RAPID FOR ED) [DRUG SCREEN, URINE, RAPID] LAB 02/07/24 17:58 Completed Stat ED PROBNP [NT-PROBNP(ED)] Stat LAB 02/07/24 16:28 Completed FLU A & B MOLECULAR [FLU A/B MOLECULAR] Stat LAB 02/07/24 17:44 Completed PT WITH INR Stat LAB 02/07/24 16:28 Completed PTT [PARTIAL THROMBOPLASTIN TIME] Stat LAB 02/07/24 16:28 Completed TROPONIN I Stat LAB 02/07/24 16:28 Completed URINALYSIS C & S IF INDICATED Stat LAB 02/07/24 17:58 Completed Insulin Lispro [Humalog (3 ml)] Meds 02/07/24 20:13 Ordered See Protocol SUBCUT PRN PRN Lactulose Meds 02/07/24 20:10 Once 20 gm PO ONCE ONE CT ABDOMEN/PELVIS W CONTRAST Stat RADS 02/07/24 17:57 Completed Medications Generic Name Dose Route Start Last Admin Trade Name Freq PRN Reason Stop Dose Admin Insulin Human Lispro 0 unit 02/07/24 20:13 Insulin Lispro 100 Unit/Ml Vial (3 Ml) SUBCUT PRN PRN Hyperglycemia Protocol Lactulose 20 gm 02/07/24 20:10 Lactulose 20 Gm/30 Ml Cup PO 02/07/24 20:11 ONCE ONE Vital Signs: Temp Pulse Resp BP Pulse Ox 02/07/24 13:40 99.3 F 88 16 156/84 H 98 Physician Progress Note: 68-year-old male with nonalcoholic's steatohepatitis and cirrhosis presents to the ER with altered mental status. He is pleasant cooperative but he does have trouble answering questions like the date. He is able to oriented to place and situation. He states that when his ammonia gets elevated he gets confused. I would agree with this and have a suspicion for it. I have ordered some labs from triage and noted that he has a significant elevation in his bilirubin. He denies any abdominal pain and his abdomen is soft nontender nonperitoneal and I doubt perforated viscus but must consider interval pathologic changes of his liver given the increased bilirubin compared to his prior levels. Will give IV fluids as well as consider some Kayexalate or lactulose to try and help remove the ammonia. Nonfocal neuroexam otherwise low suspicion for CVA, TIA, SAH, SDH, ICH. Do not feel emergent CT of the head is necessary at this time Patient will likely require hospitalization Discharge Plan Discharge Patient Disposition: PLACED OBSERVATION Discharge Problem: Hyperammonemia, Acute hepatic encephalopathy Did you review [place] NEWS GATHERING TECHNICIAN for ALL controlled substances?: Not Applicable ED Provider: ANA AVINA Condition: Stable [place] Coma Scale Gopi Coma Scale Response Scores: Best Response = 15 Comatose Client = 8 or Less Totally Unresponsive = 3
[2024-02-07 18:14] LABS: MOLECULAR FLU A NEGATIVE BY NAAT (NEGATIVE); MOLECULAR FLU B NEGATIVE BY NAAT (NEGATIVE); SARS COV-2 RNA RAPID NAAT NEGATIVE (NEGATIVE)
[2024-02-07 18:26] LABS: BILIRUBIN,URINE Negative (NEGATIVE); CLARITY,URINE Clear (CLEAR); COLOR,URINE Amber (YELLOW); GLUCOSE, URINE (UA) 2+ (NEGATIVE); KETONES,URINE Negative (NEGATIVE); LEUKOCYTE ESTERASE ,URINE Negative (NEGATIVE); NITRITE,URINE Negative (NEGATIVE); PH,URINE 5.5 (5-9); PROTEIN,URINE Negative (NEGATIVE); URINE, BLOOD Trace-intact (NEGATIVE)
[2024-02-07 18:33] LABS: BACTERIA,URINE TRACE (NOT PRESENT); SQUAMOUS EPITHELIAL CELL,UR 0-2 (0-5)
[2024-02-07 18:35] LABS: AMPHETAMINE SCREEN,URINE NEGATIVE (NEGATIVE); BARBITURATE SCREEN,URINE NEGATIVE (NEGATIVE); BENZODIAZEPINES SCREEN,URINE NEGATIVE (NEGATIVE); CANNABINOID SCREEN,URINE NEGATIVE (NEGATIVE); COCAIN SCREEN,URINE NEGATIVE (NEGATIVE); METHADONE URINE SCREEN NEGATIVE (NEGATIVE); METHAMPHETAMINES SCREEN,URINE NEGATIVE (NEGATIVE); OPIATE SCREEN,URINE NEGATIVE (NEGATIVE); OXYCODONE URINE SCREEN NEGATIVE (NEGATIVE); PHENCYCLIDINE SCREEN,URINE NEGATIVE (NEGATIVE); TRICYCLIC ANTIDEPRESSANTS URIN NEGATIVE (NEGATIVE)
--- NOTE | 2024-02-07 20:08 | CT ---
EXAM: CT ABDOMEN AND PELVIS WITH CONTRAST HISTORY: Cirrhosis. Elevated bilirubin and elevated ammonia. Abdominal and pelvic pain. TECHNIQUE: CT acquisition of the abdomen and pelvis from the lower thorax through the pelvis followin g IV contrast administration. 2-D coronal and sagittal reformatted images were obtained from the axi al source images. IV Contrast: administered. Oral Contrast: None. CT Dose Reduction Techniques Performed: Yes. COMPARISON: 09/09/2023 FINDINGS: Lower Thorax: Coronary artery calcification. No pleural effusion or pericardial effusion. Liver: No mass. Nodular surface consistent with cirrhosis. Portosystemic shunt stent appears patent . Dilated tortuous veins in the splenic hilum region consistent with varices. Biliary: The gallbladder and bile ducts are normal. Pancreas: No mass or evidence of pancreatitis. No duct dilation. Spleen: No mass. Mild splenomegaly. Adrenals: No mass. Kidneys/Ureters: Small benign right renal cyst. No solid renal mass. No calculus or hydronephrosis. GI Tract: No bowel dilation. No bowel wall thickening. Normal appendix. Peritoneal Cavity: No ascites. No free air. Retroperitoneum: No fluid collection. Lymph Nodes: No lymphadenopathy. Vasculature: There are aortic atherosclerotic calcifications. No aortic or iliac aneurysm. Celiac, superior mesenteric, and inferior mesenteric arteries are grossly patent. Limited assessment of the portal and hepatic veins and IVC is unremarkable within limitations of the phase of IV contrast. Pelvis: No mass. Bladder is normal. Enlarged prostate. Bones/Soft Tissues: No fracture or lytic lesion. Degenerative changes of the lower lumbar spine. Vi sualized abdominal wall soft tissues are unremarkable. IMPRESSION: 1. Coronary artery calcification. 2. Nodular liver consistent with cirrhosis. 3. Patent portosystemic shunt. 4. 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 5. Mild splenomegaly. 6. Benign right renal cyst. 7. Normal appendix. 8. Atherosclerosis. 9. Enlarged prostate. 10. Degenerative changes of the lower lumbar spine. 11. Otherwise unremarkable contrast enhanced CT scan of the abdomen and pelvis. All CT scans are performed using dose optimization techniques as appropriate to the performed exam an d include at least one of the following: Automated exposure control, adjustment of the mA and/or kV according t o size, and the use of iterative reconstruction technique.
[2024-02-07] MEDS ORDERED: HUMALOG (3 ML) SUBCUT PRN (20:13)
[2024-02-07] MEDS: LACTULOSE PO ONE (21:02)
[2024-02-07] MEDS: LACTATED RINGERS 1,000 ML IV SCH (21:09)
[2024-02-07] MEDS: LOPRESSOR PO SCH (21:56)
[2024-02-07] MEDS: XIFAXAN PO SCH (21:56)
[2024-02-07] MEDS: PROTONIX PO SCH (21:56)
[2024-02-07] MEDS: LACTULOSE PO SCH (22:05)
[2024-02-07 22:15] VITALS: BMI 29.3
[2024-02-08 05:17] LABS: BASOPHILS # (AUTO) 0.1 K/uL (0-0.2); BASOPHILS % (AUTO) 1.7 % (0.0-3.0); EOSINOPHILS # (AUTO) 0.2 K/ul (0.0-0.7); EOSINOPHILS % (AUTO) 5.3 % (0.0-7.0); HEMATOCRIT 34.2 % (42.0-52.0); HEMOGLOBIN 11.9 g/dl (14.0-18.0); IMMATURE GRANULOCYTE % (AUTO) 0.2 % (0.0-5.0); LYMPHOCYTES % (AUTO) 24.7 (10.0-50.0); MEAN CORPUSCULAR HEMOGLOBIN 32.1 pg (27.0-31.0); MEAN CORPUSCULAR HGB CONC 34.8 (31.8-35.4); MEAN CORPUSCULAR VOLUME 92.2 fl (80.0-94.0); MONOCYTES # (AUTO) 0.6 K/uL (0.4-2.0); MONOCYTES % (AUTO) 13.8 (0-10); NEUTROPHILS # (AUTO) 2.2 K/ul (2.0-6.9); NEUTROPHILS % (AUTO) 54.3 % (42.2-75.2); PLATELET COUNT 121 10^3/uL (140-440); RDW COEFFICIENT OF VARIATION 15.6 % (11.6-14.8); RED BLOOD COUNT 3.71 10^6/ul (4.70-6.10); WHITE BLOOD COUNT 4.13 K/ul (4.2-10.2)
[2024-02-08 05:23] LABS: ALANINE AMINOTRANSFERASE 21.5 U/L (0-50); ALBUMIN 3.49 g/dL (3.5-5.0); ALKALINE PHOSPHATASE 61.8 U/L (56-119); ASPARTATE AMINO TRANSFERASE 36.3 U/L (17-59); BILIRUBIN,TOTAL 5.03 mg/dL (0.2-1.3); BLOOD UREA NITROGEN 11.6 mg/dL (9-20); CALCIUM 9.12 mg/dL (8.4-10.2); CARBON DIOXIDE 24.1 mmol/L (22-30.0); CHLORIDE 112.1 mmol/L (98-107); CREATININE 0.97 mg/dL (0.60-1.10); GLUCOSE 211.2 mg/dL (74-106); POTASSIUM 3.68 mmol/L (3.5-5.1); SODIUM 140.9 mmol/L (134.5-145); TOTAL PROTEIN 6.12 g/dL (6.3-8.2)
[2024-02-08] MEDS: COZAAR PO SCH (08:50)
[2024-02-08] MEDS: JARDIANCE PO SCH (08:50)
[2024-02-08] MEDS: THIAMINE PO SCH (08:50)
[2024-02-08] MEDS: VITAMIN D PO SCH (08:50)
[2024-02-08] MEDS: ZYLOPRIM PO SCH (08:50)
[2024-02-08] MEDS: FLOMAX PO SCH (08:50)
[2024-02-08] MEDS: LACTULOSE PO SCH (11:50)
[2024-02-08] MEDS: HUMALOG (10 ML VIAL) SUBCUT PRN (11:51)
--- NOTE | 2024-02-08 12:39 | PCM.SS ---
Provider Provider: HANS DUKES PA-C, [facility] Primary [facility] Physician Primary Care Physician: JULIO C HART Chief Complaint Reason For Visit: HEPATIC ENCEPHALOPATHY History of Present Illness History of Present Illness: Admitted 02/07/24 20:14, this 68 year old /WHITE/M [] [facility] Medical History Failure of fundoplication Esophagogasatric Fundoplication: History of tif procedure with GI bleed. K91.89 - Other postprocedural complications and disorders of digestive system (ICD-10) Hypertension I10 - Essential (primary) hypertension (ICD-10) Hyperlipidemia E78.5 - Hyperlipidemia, unspecified (ICD-10) Fatty liver K76.0 - Fatty (change of) liver, not elsewhere classified (ICD-10) Diabetes mellitus E11.9 - Type 2 diabetes mellitus without complications (ICD-10) Arthritis M19.90 - Unspecified osteoarthritis, unspecified site (ICD-10) Surgical History History of fundoplication Z98.890 - Other specified postprocedural states (ICD-10) H/O endoscopy Z98.890 - Other specified postprocedural states (ICD-10) History of cardiac catheterization WNL Z98.890 - Other specified postprocedural states (ICD-10) Social History Smoking and tobacco status: Former smoker Medications Mecications: Medications at Discharge (Home Meds & RX) pravastatin 80 mg tablet (Pravachol) 80 mg PO QPM 08/16/13 allopurinol 100 mg tablet 100 mg PO DAILY 08/03/21 cholecalciferol (vitamin D3) 25 mcg (1,000 unit) capsule 25 mcg PO DAILY 08/15/23 empagliflozin 10 mg tablet (Jardiance) 10 mg PO DAILY 08/15/23 rifaximin 550 mg tablet (Xifaxan) 550 mg PO Q12H 08/15/23 tamsulosin 0.4 mg capsule 0.4 mg PO DAILY 08/15/23 metoprolol tartrate 50 mg tablet 75 mg (1.5 x 50 mg) PO BID #60 tabs 08/18/23 losartan 100 mg tablet 100 mg PO DAILY 09/09/23 cetirizine 10 mg tablet (24Hour Allergy) 10 mg PO DAILY PRN allergy symptoms 12/02/23 metformin 1,000 mg tablet 1,000 mg PO BID 12/02/23 pantoprazole 40 mg tablet,delayed release 40 mg PO BID 12/02/23 thiamine HCl (vitamin B1) 100 mg tablet (Vitamin B-1) 100 mg PO DAILY 12/02/23 lactulose 10 gram/15 mL (15 mL) oral solution 20 g (30 mL) PO BID #1,800 mL 12/03/23 Allergies Allergies Allergy/AdvReac Type Severity Reaction Status Date / Time No Known Allergies Allergy Verified 02/07/24 17:07 Vital Signs (Last 4 Hours) Vital Signs Last 4 Hours: Vital Signs: Last 4 Hours 02/08/24 09:00 02/08/24 10:00 02/08/24 10:00 Temperature 97.5 F L Temperature Source Temporal Artery Scan Pulse Rate 65 Respiratory Rate 16 Blood Pressure 143/71 H Blood Pressure Mean 95 Blood Pressure Location Left Arm Blood Pressure Position Sitting O2 Sat by Pulse Oximetry 99 Oxygen Delivery Method Room Air Room Air Room Air 02/08/24 11:00 Temperature Temperature Source Pulse Rate Respiratory Rate Blood Pressure Blood Pressure Mean Blood Pressure Location Blood Pressure Position O2 Sat by Pulse Oximetry Oxygen Delivery Method Room Air Labs This Visit Labs This Visit: Labs This Visit 02/07/24 02/07/24 02/07/24 16:28 17:27 17:44 WBC 4.71 RBC 4.10 L Hgb 13.3 L Hct 38.8 L MCV 94.6 H MCH 32.4 H MCHC 34.3 RDW Coeff of Luis Daniel 15.9 H Plt Count 139 L Immature Gran % (Auto) 0.2 Neut % (Auto) 59.6 Lymph % (Auto) 24.2 [place] % (Auto) 9.6 Eos % (Auto) 4.5 Baso % (Auto) 1.9 Neut # (Auto) 2.8 Lymph # (Auto) 1.1 [place] # (Auto) 0.5 Eos # (Auto) 0.2 Baso # (Auto) 0.1 Immature Gran # (Auto) 0.0 PT 10.9 INR 1.05 APTT 24.8 Sodium 140.9 Potassium 3.59 Chloride 109.9 H Carbon Dioxide 17.3 L Anion Gap 17.29 BUN 14.7 Creatinine 0.82 Estimated GFR (MDRD) 94.00 BUN/Creatinine Ratio 17.92 Glucose 209.3 H Calcium 9.35 Total Bilirubin 6.02 H AST 38.3 ALT 24.1 Alkaline Phosphatase 65.2 Ammonia 67.8 H Troponin I < 0.012 NT-Pro-B Natriuret Pep 201 Total Protein 7.02 Albumin 4.13 Globulin 2.89 Albumin/Globulin Ratio 1.42 Urine Color Urine Clarity Urine pH Ur Specific [place] Urine Protein Urine Glucose (UA) Urine Ketones Urine Blood Urine Nitrite Urine Bilirubin Urine Urobilinogen Ur Leukocyte Esterase Urine Microscopic RBC Urine Microscopic WBC Ur Squamous Epith Cells Urine Bacteria Urine Opiates Screen Ur Oxycodone Screen Urine Methadone Screen Ur Barbiturates Screen U Tricyclic Antidepress Ur Phencyclidine Scrn Ur Amphetamine Screen U Methamphetamines Scrn U Benzodiazepines Scrn Urine Cocaine Screen U Cannabinoids Screen Influ A Molecular Assay Negative by naat Influ B Molecular Assay Negative by naat SARS CoV-2 RNA Rapid KELSEY Negative 02/07/24 02/08/24 17:58 04:55 WBC 4.13 L RBC 3.71 L Hgb 11.9 L Hct 34.2 L MCV 92.2 MCH 32.1 H MCHC 34.8 RDW Coeff of Luis Daniel 15.6 H Plt Count 121 L Immature Gran % (Auto) 0.2 Neut % (Auto) 54.3 Lymph % (Auto) 24.7 [place] % (Auto) 13.8 H Eos % (Auto) 5.3 Baso % (Auto) 1.7 Neut # (Auto) 2.2 Lymph # (Auto) 1.0 [place] # (Auto) 0.6 Eos # (Auto) 0.2 Baso # (Auto) 0.1 Immature Gran # (Auto) 0.0 PT INR APTT Sodium 140.9 Potassium 3.68 Chloride 112.1 H Carbon Dioxide 24.1 Anion Gap 8.38 BUN 11.6 Creatinine 0.97 Estimated GFR (MDRD) 77.00 BUN/Creatinine Ratio 11.95 Glucose 211.2 H Calcium 9.12 Total Bilirubin 5.03 H AST 36.3 ALT 21.5 Alkaline Phosphatase 61.8 Ammonia 59.7 H Troponin I NT-Pro-B Natriuret Pep Total Protein 6.12 L Albumin 3.49 L Globulin 2.63 Albumin/Globulin Ratio 1.32 Urine Color Tina Urine Clarity Clear Urine pH 5.5 Ur Specific [place] 1.020 Urine Protein Negative Urine Glucose (UA) 2+ H Urine Ketones Negative Urine Blood Trace-intact H Urine Nitrite Negative Urine Bilirubin Negative Urine Urobilinogen 4.0 H Ur Leukocyte Esterase Negative Urine Microscopic RBC 2-5 Urine Microscopic WBC 2-5 Ur Squamous Epith Cells 0-2 Urine Bacteria Trace Urine Opiates Screen Negative Ur Oxycodone Screen Negative Urine Methadone Screen Negative Ur Barbiturates Screen Negative U Tricyclic Antidepress Negative Ur Phencyclidine Scrn Negative Ur Amphetamine Screen Negative U Methamphetamines Scrn Negative U Benzodiazepines Scrn Negative Urine Cocaine Screen Negative U Cannabinoids Screen Negative Influ A Molecular Assay Influ B Molecular Assay SARS CoV-2 RNA Rapid KELSEY Review Review Statement: I have independently reviewed and interpreted the labs/EKGs/imaging that were ordered by the ER provider. I have reviewed all outside records that are available currently in our EMR including imaging/notes/labs from previous vis its. Plan Additional Planning: Case discussed with ED Physician, []. DVT Prophylaxis: Advanced Care Planning: [] minutes spent discussing advance care planning. Smoking Cessation: 3-10 minutes spent discussing smoking cessation. Disposition: Admit to: Discussed Plan of Care with DrAlona [] If patient discharged with Left Ventricular Systolic Dysfunction: Discharged with a beta jaylon? [] If no, why not? [] Discharged with an antonia/arb? [] If no, why not? [] Review With Patient Reviewed with Patient and Family: Patient and family have been counseled on condition and care plan and have no immediate questions. I have personally discussed and reviewed the patient's visit/current labs/imaging/decision making with Dr. Lynn Marin, my supervising attending. Total number of minutes spent with patient [ ] min. More than 50% of the time spent with this patient was devoted to counseling and coordination of care. Time of Admission:02/07/24 20:14 Time of Discharge: Discharge Plan Discharge Discharge Orders: Discharge Patient (ONCE); Ordered 02/08/24 Ordered By: HANS DUKES Activity Restrictions/Additional Instructions: DISCHARGE TO HOME DIET: DIABETIC ACTIVITY: TOLERATED RECOMMEND NOT DRIVING DUE TO FLUCTUATING AMMONIA LEVELS F/U WITH PCP AND GI STAY COMPLIANT WITH GI MEDS Instructions: Hepatic Encephalopathy (GEN) Prescriptions: No Action pravastatin [Pravachol] 80 MG tablet 80 mg PO QPM Jardiance 10 mg tablet 10 mg PO DAILY tamsulosin 0.4 mg capsule 0.4 mg PO DAILY cholecalciferol (vitamin D3) 25 mcg (1,000 unit) capsule 25 mcg PO DAILY Xifaxan 550 mg tablet 550 mg PO Q12H metoprolol tartrate 50 mg Tablet 75 mg PO BID Qty: 60 0RF losartan 100 mg tablet 100 mg PO DAILY pantoprazole 40 mg tablet,delayed release (DR/EC) 40 mg PO BID metformin 1,000 mg tablet 1,000 mg PO BID cetirizine [24Hour Allergy] 10 mg tablet 10 mg PO DAILY PRN (Reason: allergy symptoms) thiamine HCl (vitamin B1) [Vitamin B-1] 100 mg tablet 100 mg PO DAILY lactulose 10 gram/15 mL (15 mL) solution 20 g PO BID Qty: 1800 0RF allopurinol 100 mg Tablet 100 mg PO DAILY Did you review [place] CASTER OPERATOR for ALL controlled substances?: Not Applicable Discussed opioids are addictive and Narcan is available by prescription or from pharmacy.: No Condition: Stable
--- NOTE | 2024-02-08 14:28 | PCM ---
Date of Service Date Seen by Provider: 02/08/24 Time Seen by Provider: 08:50 Admit Day/Time Admission Date: 02/07/24 Admission Time: 20:10 Reason for Admission Chief Complaint: HEPATIC ENCEPHALOPATHY Hospital Provider Hospital Provider: HANS DUKES [place] [facility] [place] Primary Care Physician: JULIO C HART History of Present Illness History of Present Illness: 68 year old /WHITE/M with pmhx of cirrhosis with varices, hx of TIPS procedure, gastric ulcers, hyperlipidemia, hypertension, DMT2, who presents to the ER with worsening confusion. Pt has multiple hospitalizations in past for hepatic encephalopathy. Patient is unsure of timeline of events. Ammonia noted to be 67. Other labs and imaging were baselined. Patient was admitted to [facility]. Today patient is feeling better but not quite at baseline. Still having some confusion with details, thought it was 2024. Lives at home alone. Doesn't have a ride today. Historically noncompliant with medications. He does state he's been better with his lactulose but had missed some doses. States he was cut down to 15 ml bid due to having too many stools. Most recently hospitalized at [facility] end of December for same thing, records reviewed. Ammonia at that time was in 80s and resistant to improve despite improvement of mentation. Case Discussed With Case Discussed With: Patient's case was discussed with the ER Physicians, Dr. RODRIGUEZ Medical History Failure of fundoplication Esophagogasatric Fundoplication: History of tif procedure with GI bleed. K91.89 - Other postprocedural complications and disorders of digestive system (ICD-10) Hypertension I10 - Essential (primary) hypertension (ICD-10) Hyperlipidemia E78.5 - Hyperlipidemia, unspecified (ICD-10) Fatty liver K76.0 - Fatty (change of) liver, not elsewhere classified (ICD-10) Diabetes mellitus E11.9 - Type 2 diabetes mellitus without complications (ICD-10) Arthritis M19.90 - Unspecified osteoarthritis, unspecified site (ICD-10) Surgical History History of fundoplication Z98.890 - Other specified postprocedural states (ICD-10) H/O endoscopy Z98.890 - Other specified postprocedural states (ICD-10) History of cardiac catheterization WNL Z98.890 - Other specified postprocedural states (ICD-10) Social History Smoking and tobacco status: Former smoker Allergies Allergies Allergy/AdvReac Type Severity Reaction Status Date / Time No Known Allergies Allergy Verified 02/07/24 17:07 Current Medications Home Medications pravastatin 80 mg tablet (Pravachol) 80 mg PO QPM 08/16/13 [History Confirmed 02/07/24 Last Taken 11/26/23] allopurinol 100 mg tablet 100 mg PO DAILY 08/03/21 [History Confirmed 02/07/24 Last Taken 11/27/23] cholecalciferol (vitamin D3) 25 mcg (1,000 unit) capsule 25 mcg PO DAILY 08/15/23 [History Confirmed 02/07/24 Last Taken 11/27/23] empagliflozin 10 mg tablet (Jardiance) 10 mg PO DAILY 08/15/23 [History Confirmed 02/07/24 Last Taken 11/27/23] rifaximin 550 mg tablet (Xifaxan) 550 mg PO Q12H 08/15/23 [History Confirmed 02/07/24 Last Taken 12/02/23 09:00] tamsulosin 0.4 mg capsule 0.4 mg PO DAILY 08/15/23 [History Confirmed 02/07/24 Last Taken 11/27/23] metoprolol tartrate 50 mg tablet 75 mg (1.5 x 50 mg) PO BID #60 tabs 08/18/23 [Rx Confirmed 02/07/24 Last Taken 11/26/23] losartan 100 mg tablet 100 mg PO DAILY 09/09/23 [History Confirmed 02/07/24 Last Taken 11/27/23] cetirizine 10 mg tablet (24Hour Allergy) 10 mg PO DAILY PRN allergy symptoms 12/02/23 [History Confirmed 02/07/24 Last Taken 11/27/23] metformin 1,000 mg tablet 1,000 mg PO BID 12/02/23 [History Confirmed 02/07/24 Last Taken 11/26/23] pantoprazole 40 mg tablet,delayed release 40 mg PO BID 12/02/23 [History Confirmed 02/07/24 Last Taken 11/26/23] thiamine HCl (vitamin B1) 100 mg tablet (Vitamin B-1) 100 mg PO DAILY 12/02/23 [History Confirmed 02/07/24 Last Taken Unknown] lactulose 10 gram/15 mL (15 mL) oral solution 20 g (30 mL) PO BID #1,800 mL 12/03/23 [Rx Confirmed 02/07/24 Last Taken Unknown] Home Allopurinol (Allopurinol 100 Mg Tablet) 100 mg PO DAILY [facility] Last Admin: 02/08/24 08:50 Dose: 100 mg Cholecalciferol (Cholecalciferol (Vitamin D3) 1,000 Unit (25 Mcg) Tablet) 1,000 unit PO DAILY [facility] Last Admin: 02/08/24 08:50 Dose: 1,000 unit Empagliflozin (Empagliflozin 10 Mg Tablet) 10 mg PO DAILY [facility] Last Admin: 02/08/24 08:50 Dose: 10 mg Insulin Human Lispro (Insulin Lispro 100 Unit/Ml (10 Ml Vial)) 0 unit SUBCUT PRN PRN; Protocol PRN Reason: Hyperglycemia Last Admin: 02/08/24 11:51 Dose: 4 unit Lactulose (Lactulose 20 Gm/30 Ml Cup) 20 gm PO BID [facility] Last Admin: 02/08/24 11:50 Dose: 20 gm Losartan Potassium (Losartan Potassium 100 Mg Tablet) 100 mg PO DAILY [facility] Last Admin: 02/08/24 08:50 Dose: 100 mg Metoprolol Tartrate (Metoprolol Tartrate 50 Mg Tablet) 75 mg PO BID [facility] Last Admin: 02/08/24 08:49 Dose: 75 mg Pantoprazole Sodium (Pantoprazole Sodium 40 Mg Tablet.Dr) 40 mg PO BIDAC2 [facility] Pravastatin Sodium (Pravastatin Sodium 40 Mg Tablet) 80 mg PO QPM [facility] Rifaximin (Rifaximin 550 Mg Tablet) 550 mg PO Q12HR [facility] Sodium Chloride (0.9% Sodium Chloride 10 Ml Disp.Syrin) 1 syr IVF PRN PRN PRN Reason: FLUSHING Tamsulosin HCl (Tamsulosin Hcl 0.4 Mg Cap.Er.24h) 0.4 mg PO DAILY [facility] Last Admin: 02/08/24 08:50 Dose: 0.4 mg Thiamine HCl (Vitamin B-1 100 Mg Tablet) 100 mg PO DAILY [facility] Last Admin: 02/08/24 08:50 Dose: 100 mg Discontinued Medications Lactated Ringer's (Lactated Ringers) 1,000 mls @ 75 mls/hr IV .[id number] [facility] Last Admin: 02/08/24 11:01 Dose: Not Given Insulin Human Lispro (Insulin Lispro 100 Unit/Ml Vial (3 Ml)) 0 unit SUBCUT PRN PRN; Protocol PRN Reason: Hyperglycemia Lactulose (Lactulose 20 Gm/30 Ml Cup) 20 gm PO ONCE ONE Stop: 02/07/24 20:11 Last Admin: 02/07/24 21:02 Dose: 20 gm Lactulose (Lactulose 20 Gm/30 Ml Cup) 20 gm PO Q2HR [facility] Last Admin: 02/08/24 06:18 Dose: Not Given Pantoprazole Sodium (Pantoprazole Sodium 40 Mg Tablet.Dr) 40 mg PO BID [facility] Last Admin: 02/08/24 08:50 Dose: 40 mg Rifaximin (Rifaximin 550 Mg Tablet) 550 mg PO Q12H [facility] Stop: 02/10/24 20:59 Last Admin: 02/08/24 08:49 Dose: 550 mg Sodium Chloride (0.9% Sodium Chloride 10 Ml Disp.Syrin) 1 syr IVF Q8HR [facility] Last Admin: 02/07/24 21:02 Dose: 1 syr Opioid Naive vs. Tolerant Does Patient Take Opioids?: No Is Patient Opioid Naive?: Yes What is Opioid Naive?: *Opioid Naive implies the patient is not already taking opioids or not chronically receiving opioids on a daily basis. *PRN dosing is not "usually" associated with tolerance. *Patients are at higher risk of over-sedation and aspiration. Is Patient Opioid Tolerant?: No What is Opioid Tolerant?: *Opioid Tolerance implies less than the expected response to an opioid. *Acquired tolerance is defined by the patient taking 60mg of oral morphine daily (or equianalgesic dose of another opioid) for 1 week or more. *Often associated with chronic pain. *May take more than usual dose to achieve desired pain control. Review of Systems Constitutional: Reports Fatigue and Weakness Cardiovascular: Denies Chest pain or Chest Pressure Respiratory: Denies Cough or Shortness of air Gastrointestinal: Denies Nausea, Vomiting, Diarrhea, Abdominal pain or Melena Genitourinary: Denies Dysuria or Hematuria Neurological: Reports Other (+confusion) Physical examination Most Recent Vital Signs: Most Recent Vital Signs Temperature 97.1 F L 02/08/24 14:00 Temperature Source Temporal Artery Scan 02/08/24 14:00 Temperature Source Temporal Artery Scan 02/07/24 13:40 Pulse Rate 60 02/08/24 14:00 Respiratory Rate 20 02/08/24 14:00 Blood Pressure 145/70 H 02/08/24 14:00 Blood Pressure Mean 95 02/08/24 14:00 Blood Pressure Left Arm 159/83 02/07/24 20:47 Blood Pressure Location Left Arm 02/08/24 14:00 Blood Pressure Position Sitting 02/08/24 14:00 O2 Sat by Pulse Oximetry 99 02/08/24 14:00 Oxygen Delivery Method Room Air 02/08/24 14:00 Height 6 ft 02/07/24 20:47 Weight 216 lb 4 oz 02/07/24 20:47 Telemetry Type Remote Telemetry 02/08/24 13:00 Telemetry Monitoring Continues 02/08/24 13:00 Telemetry Heart Rate 71 02/08/24 13:00 EKG GA Interval 0.23 H 02/08/24 13:00 EKG QRS Interval 0.12 H 02/08/24 13:00 Telemetry Strip Reading SR with 1st Degree AVB/BBB 02/08/24 13:00 Appearance: Positive No Apparent Distress and Other (+Alert and oriented to person and place ) Skin: Positive [place], Warm and Good Turgor; Negative Rashes HEENT: Positive Normocephalic and Atraumatic Neck: Positive Supple and Midline Trachea Chest/Lungs: Positive Clear to Auscultation Bilaterally; Negative Rales, Rhonci or Wheezes Heart: Positive RRR GI/: Positive Soft, Nontender, Bowel Sounds Normal and No Distention Neurological: Positive Cranial Nerves Intact, Alert and Oriented (to person and place only ) Psychiatric: Positive Appropriate Mood and Appropriate Affect; Negative Normal Insight Additional Findings: +trace edema alis lower ext Labs This Visit Labs This Visit: Labs This Visit 02/07/24 02/07/24 02/07/24 16:28 17:27 17:44 WBC 4.71 RBC 4.10 L Hgb 13.3 L Hct 38.8 L MCV 94.6 H MCH 32.4 H MCHC 34.3 RDW Coeff of Luis Daniel 15.9 H Plt Count 139 L Immature Gran % (Auto) 0.2 Neut % (Auto) 59.6 Lymph % (Auto) 24.2 [place] % (Auto) 9.6 Eos % (Auto) 4.5 Baso % (Auto) 1.9 Neut # (Auto) 2.8 Lymph # (Auto) 1.1 [place]ickman # (Auto) 0.5 Eos # (Auto) 0.2 Baso # (Auto) 0.1 Immature Gran # (Auto) 0.0 PT 10.9 INR 1.05 APTT 24.8 Sodium 140.9 Potassium 3.59 Chloride 109.9 H Carbon Dioxide 17.3 L Anion Gap 17.29 BUN 14.7 Creatinine 0.82 Estimated GFR (MDRD) 94.00 BUN/Creatinine Ratio 17.92 Glucose 209.3 H Calcium 9.35 Total Bilirubin 6.02 H AST 38.3 ALT 24.1 Alkaline Phosphatase 65.2 Ammonia 67.8 H Troponin I < 0.012 NT-Pro-B Natriuret Pep 201 Total Protein 7.02 Albumin 4.13 Globulin 2.89 Albumin/Globulin Ratio 1.42 Urine Color Urine Clarity Urine pH Ur Specific [place] Urine Protein Urine Glucose (UA) Urine Ketones Urine Blood Urine Nitrite Urine Bilirubin Urine Urobilinogen Ur Leukocyte Esterase Urine Microscopic RBC Urine Microscopic WBC Ur Squamous Epith Cells Urine Bacteria Urine Opiates Screen Ur Oxycodone Screen Urine Methadone Screen Ur Barbiturates Screen U Tricyclic Antidepress Ur Phencyclidine Scrn Ur Amphetamine Screen U Methamphetamines Scrn U Benzodiazepines Scrn Urine Cocaine Screen U Cannabinoids Screen Influ A Molecular Assay Negative by naat Influ B Molecular Assay Negative by naat SARS CoV-2 RNA Rapid KELSEY Negative 02/07/24 02/08/24 02/08/24 17:58 04:55 12:45 WBC 4.13 L RBC 3.71 L Hgb 11.9 L Hct 34.2 L MCV 92.2 MCH 32.1 H MCHC 34.8 RDW Coeff of Luis Daniel 15.6 H Plt Count 121 L Immature Gran % (Auto) 0.2 Neut % (Auto) 54.3 Lymph % (Auto) 24.7 [place] % (Auto) 13.8 H Eos % (Auto) 5.3 Baso % (Auto) 1.7 Neut # (Auto) 2.2 Lymph # (Auto) 1.0 [place] # (Auto) 0.6 Eos # (Auto) 0.2 Baso # (Auto) 0.1 Immature Gran # (Auto) 0.0 PT INR APTT Sodium 140.9 Potassium 3.68 Chloride 112.1 H Carbon Dioxide 24.1 Anion Gap 8.38 BUN 11.6 Creatinine 0.97 Estimated GFR (MDRD) 77.00 BUN/Creatinine Ratio 11.95 Glucose 211.2 H Calcium 9.12 Total Bilirubin 5.03 H AST 36.3 ALT 21.5 Alkaline Phosphatase 61.8 Ammonia 59.7 H 53.7 H Troponin I NT-Pro-B Natriuret Pep Total Protein 6.12 L Albumin 3.49 L Globulin 2.63 Albumin/Globulin Ratio 1.32 Urine Color Tina Urine Clarity Clear Urine pH 5.5 Ur Specific [place] 1.020 Urine Protein Negative Urine Glucose (UA) 2+ H Urine Ketones Negative Urine Blood Trace-intact H Urine Nitrite Negative Urine Bilirubin Negative Urine Urobilinogen 4.0 H Ur Leukocyte Esterase Negative Urine Microscopic RBC 2-5 Urine Microscopic WBC 2-5 Ur Squamous Epith Cells 0-2 Urine Bacteria Trace Urine Opiates Screen Negative Ur Oxycodone Screen Negative Urine Methadone Screen Negative Ur Barbiturates Screen Negative U Tricyclic Antidepress Negative Ur Phencyclidine Scrn Negative Ur Amphetamine Screen Negative U Methamphetamines Scrn Negative U Benzodiazepines Scrn Negative Urine Cocaine Screen Negative U Cannabinoids Screen Negative Influ A Molecular Assay Influ B Molecular Assay SARS CoV-2 RNA Rapid KELSEY Imaging Imaging: EXAM: CT ABDOMEN AND PELVIS WITH CONTRAST HISTORY: Cirrhosis. Elevated bilirubin and elevated ammonia. Abdominal and pelvic pain. TECHNIQUE: CT acquisition of the abdomen and pelvis from the lower thorax through the pelvis following IV contrast administration. 2-D coronal and sagittal reformatted images were obtained from the axial source images. IV Contrast: administered. Oral Contrast: None. CT Dose Reduction Techniques Performed: Yes. COMPARISON: 09/09/2023 FINDINGS: Lower Thorax: Coronary artery calcification. No pleural effusion or pericardial effusion. Liver: No mass. Nodular surface consistent with cirrhosis. Portosystemic shunt stent appears patent. Dilated tortuous veins in the splenic hilum region consistent with varices. Biliary: The gallbladder and bile ducts are normal. Pancreas: No mass or evidence of pancreatitis. No duct dilation. Spleen: No mass. Mild splenomegaly. Adrenals: No mass. Kidneys/Ureters: Small benign right renal cyst. No solid renal mass. No calculus or hydronephrosis. GI Tract: No bowel dilation. No bowel wall thickening. Normal appendix. Peritoneal Cavity: No ascites. No free air. Retroperitoneum: No fluid collection. Lymph Nodes: No lymphadenopathy. Vasculature: There are aortic atherosclerotic calcifications. No aortic or iliac aneurysm. Celiac, superior mesenteric, and inferior mesenteric arteries are grossly patent. Limited assessment of the portal and hepatic veins and IVC is unremarkable within limitations of the phase of IV contrast. Pelvis: No mass. Bladder is normal. Enlarged prostate. Bones/Soft Tissues: No fracture or lytic lesion. Degenerative changes of the lower lumbar spine. Visualized abdominal wall soft tissues are unremarkable. IMPRESSION: 1. Coronary artery calcification. 2. Nodular liver consistent with cirrhosis. 3. Patent portosystemic shunt. 4. 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 5. Mild splenomegaly. 6. Benign right renal cyst. 7. Normal appendix. 8. Atherosclerosis. 9. Enlarged prostate. 10. Degenerative changes of the lower lumbar spine. 11. Otherwise unremarkable contrast enhanced CT scan of the abdomen and pelvis. Review Statement Review Statement: I have independently reviewed and interpreted the labs/EKGs/imaging that were ordered by the ER provider. I have reviewed all outside records that are available currently in our EMR including imaging/notes/labs from previous visits. Plan Plan: 1. Acute hepatic encephalopathy in setting of liver disease and medical noncompliance - Mentation and ammonia improved but not yet baseline. Cont lactulose and xifaxan. 2. Liver disease s/p TIPS - Cont outpt f/u with GI 3. Hypertension - Cont home meds 4. BPH - Cont home meds 5. DMT2 - Hold metformin, humalog ss, diabetic diet DVT Prophylaxis: Ambulation Time Spent: Greater than 80 minutes spent with patient, 50% of the time spent with this patient was devoted to counseling and coordination of care. [facility] minutes spent discussing advance care planning. Admit to: Made inpatient today Discussed Plan of Care with Dr. Lynn Marin. SW discussed with patient long term options and better medication compliance. Pt is not interested at this time and feels he can care for himself at home. Home health ordered. Medications Medication Orders: Medications Ordered Category Date Time Status 0.9 % Sodium Chloride [Saline Flush] Meds 02/08/24 04:47 Active 1 syr IVF PRN PRN Allopurinol [Zyloprim] Meds 02/08/24 09:00 Active 100 mg PO DAILY Cholecalciferol (Vitamin D3) [Vitamin D] Meds 02/08/24 09:00 Active 1,000 unit PO DAILY Empaglifozin [Jardiance] Meds 02/08/24 09:00 Active 10 mg PO DAILY Insulin Lispro [Humalog (10 ml Vial)] Meds 02/08/24 11:44 Active See Protocol SUBCUT PRN PRN Lactulose Meds 02/08/24 10:40 Active 20 gm PO BID Losartan Potassium [Cozaar] Meds 02/08/24 09:00 Active 100 mg PO DAILY Metoprolol Tartrate [Lopressor] Meds 02/07/24 21:00 Active 75 mg PO BID Pantoprazole Sodium [Protonix] Meds 02/08/24 17:00 Active 40 mg PO BIDAC2 Pravastatin Sodium [Pravachol] Meds 02/08/24 17:00 Active 80 mg PO QPM Rifaximin [Xifaxan] Meds 02/08/24 21:00 Active 550 mg PO Q12HR Tamsulosin HCl [Flomax] Meds 02/08/24 09:00 Active 0.4 mg PO DAILY Vitamin B-1 [Thiamine] Meds 02/08/24 09:00 Active 100 mg PO DAILY
[2024-02-08] MEDS: PROTONIX PO SCH (16:41)
[2024-02-08] MEDS: PRAVACHOL PO SCH (16:41)
[2024-02-08] MEDS: XIFAXAN PO SCH (20:26)
[2024-02-08 21:17] VITALS: TEMP 96.9
[2024-02-09 05:08] LABS: BASOPHILS # (AUTO) 0.1 K/uL (0-0.2); BASOPHILS % (AUTO) 1.9 % (0.0-3.0); EOSINOPHILS # (AUTO) 0.3 K/ul (0.0-0.7); EOSINOPHILS % (AUTO) 6.5 % (0.0-7.0); HEMATOCRIT 37.5 % (42.0-52.0); HEMOGLOBIN 12.6 g/dl (14.0-18.0); IMMATURE GRANULOCYTE % (AUTO) 0.2 % (0.0-5.0); LYMPHOCYTES # (AUTO) 1.2 K/uL (0.60-3.4); LYMPHOCYTES % (AUTO) 29.4 (10.0-50.0); MEAN CORPUSCULAR HEMOGLOBIN 31.3 pg (27.0-31.0); MEAN CORPUSCULAR HGB CONC 33.6 (31.8-35.4); MEAN CORPUSCULAR VOLUME 93.3 fl (80.0-94.0); MONOCYTES # (AUTO) 0.4 K/uL (0.4-2.0); MONOCYTES % (AUTO) 10.6 (0-10); NEUTROPHILS # (AUTO) 2.1 K/ul (2.0-6.9); NEUTROPHILS % (AUTO) 51.4 % (42.2-75.2); PLATELET COUNT 119 10^3/uL (140-440); RDW COEFFICIENT OF VARIATION 15.3 % (11.6-14.8); RED BLOOD COUNT 4.02 10^6/ul (4.70-6.10); WHITE BLOOD COUNT 4.15 K/ul (4.2-10.2)
[2024-02-09 05:14] VITALS: BP 134/53; PULSE 56; RESP 18
[2024-02-09 05:21] LABS: ALBUMIN 3.64 g/dL (3.5-5.0); ALKALINE PHOSPHATASE 61.1 U/L (56-119); ASPARTATE AMINO TRANSFERASE 37.3 U/L (17-59); BILIRUBIN,TOTAL 4.16 mg/dL (0.2-1.3); BLOOD UREA NITROGEN 10.4 mg/dL (9-20); CALCIUM 9.16 mg/dL (8.4-10.2); CARBON DIOXIDE 26.5 mmol/L (22-30.0); CHLORIDE 110.2 mmol/L (98-107); CREATININE 0.89 mg/dL (0.60-1.10); GLUCOSE 181.1 mg/dL (74-106); POTASSIUM 3.55 mmol/L (3.5-5.1); SODIUM 140.5 mmol/L (134.5-145); TOTAL PROTEIN 6.39 g/dL (6.3-8.2)
--- NOTE | 2024-02-09 09:02 | DCSUM ---
Admission Date Admission Date: 02/07/24 Discharge Date Discharge Date: 02/09/24 Admission Diagnosis Admission Diagnosis: 1. Acute hepatic encephalopathy in setting of liver disease and medical noncompliance Discharge Diagnosis Discharge Diagnosis: 1. Acute hepatic encephalopathy in setting of liver disease and medical noncompliance 2. Liver disease s/p TIPS 3. Hypertension 4. BPH 5. DMT2 Hospital Provider Hospital Provider: HANS DUKES PA-C, [facility] Primary Care Physician Primary Care Physician: JULIO C HART Summary of History and Physical Summary of History and Physical: 68 year old /WHITE/M with pmhx of cirrhosis with varices, hx of TIPS procedure, gastric ulcers, hyperlipidemia, hypertension, DMT2, who presents to the ER with worsening confusion. Pt has multiple hospitalizations in past for hepatic encephalopathy. Patient is unsure of timeline of events. Ammonia noted to be 67. Other labs and imaging were baselined. Patient was admitted to [facility]. Today patient is feeling better but not quite at baseline. Still having some confusion with details, thought it was 2024. Lives at home alone. Doesn't have a ride today. Historically noncompliant with medications. He does state he's been better with his lactulose but had missed some doses. States he was cut down to 15 ml bid due to having too many stools. Most recently hospitalized at [facility] end of December for same thing, records reviewed. Ammonia at that time was in 80s and resistant to improve despite improvement of mentation. Hospital Course Subjective: Patient was treated with lactulose and continued on his xifaxan. 02/07 patient was improved but not yet to his baseline. Today ammonia is 29. Pt feels better and at his baseline. We discussed importance of adherence to taking his lactulose, and how to make sure he gets in at least 2 doses a day to produce 2-3 BMs daily. Take an extra dose if not having enough BMs. F/u with pcp and GI. Pt agrees to plan of care. Pt was agreeable to home health which has been set up. Appearance: Pleasant, No Apparent Distress and Alert HEENT: MMM and Supple CVS: Other (RRR) Abdomen: Soft, Non-Tender and No Distention Respiratory: No Accessory Muscle Use Extremities: Other (+trace edema alis ) Vital Signs: Most Recent Vital Signs Temperature 96.9 F L 02/09/24 05:11 Temperature Source Temporal Artery Scan 02/09/24 05:11 Temperature Source Temporal Artery Scan 02/07/24 13:40 Pulse Rate 56 L 02/09/24 05:11 Respiratory Rate 18 02/09/24 05:11 Blood Pressure 134/53 L 02/09/24 05:11 Blood Pressure Mean 80 02/09/24 05:11 Blood Pressure Left Arm 159/83 02/07/24 20:47 Blood Pressure Location Left Arm 02/09/24 05:11 Blood Pressure Position Supine 02/09/24 05:11 O2 Sat by Pulse Oximetry 99 02/09/24 05:11 Oxygen Delivery Method Room Air 02/09/24 07:46 Height 6 ft 02/07/24 20:47 Weight 216 lb 4 oz 02/07/24 20:47 Telemetry Type Remote Telemetry 02/09/24 06:55 Telemetry Monitoring Continues 02/09/24 06:55 Telemetry Heart Rate 51 L 02/09/24 06:55 EKG OK Interval 0.18 02/09/24 06:55 EKG QRS Interval 0.09 02/09/24 06:55 Telemetry Strip Reading SB 02/09/24 06:55 Imaging: EXAM: CT ABDOMEN AND PELVIS WITH CONTRAST HISTORY: Cirrhosis. Elevated bilirubin and elevated ammonia. Abdominal and pelvic pain. TECHNIQUE: CT acquisition of the abdomen and pelvis from the lower thorax through the pelvis following IV contrast administration. 2-D coronal and sagittal reformatted images were obtained from the axial source images. IV Contrast: administered. Oral Contrast: None. CT Dose Reduction Techniques Performed: Yes. COMPARISON: 09/09/2023 FINDINGS: Lower Thorax: Coronary artery calcification. No pleural effusion or pericardial effusion. Liver: No mass. Nodular surface consistent with cirrhosis. Portosystemic shunt stent appears patent. Dilated tortuous veins in the splenic hilum region consistent with varices. Biliary: The gallbladder and bile ducts are normal. Pancreas: No mass or evidence of pancreatitis. No duct dilation. Spleen: No mass. Mild splenomegaly. Adrenals: No mass. Kidneys/Ureters: Small benign right renal cyst. No solid renal mass. No calculus or hydronephrosis. GI Tract: No bowel dilation. No bowel wall thickening. Normal appendix. Peritoneal Cavity: No ascites. No free air. Retroperitoneum: No fluid collection. Lymph Nodes: No lymphadenopathy. Vasculature: There are aortic atherosclerotic calcifications. No aortic or iliac aneurysm. Celiac, superior mesenteric, and inferior mesenteric arteries are grossly patent. Limited assessment of the portal and hepatic veins and IVC is unremarkable within limitations of the phase of IV contrast. Pelvis: No mass. Bladder is normal. Enlarged prostate. Bones/Soft Tissues: No fracture or lytic lesion. Degenerative changes of the lower lumbar spine. Visualized abdominal wall soft tissues are unremarkable. IMPRESSION: 1. Coronary artery calcification. 2. Nodular liver consistent with cirrhosis. 3. Patent portosystemic shunt. 4. 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 5. Mild splenomegaly. 6. Benign right renal cyst. 7. Normal appendix. 8. Atherosclerosis. 9. Enlarged prostate. 10. Degenerative changes of the lower lumbar spine. 11. Otherwise unremarkable contrast enhanced CT scan of the abdomen and pelvis. Lab Results Last 24 Hours: 02/09/24 02/09/24 02/08/24 05:53 04:48 12:45 WBC 4.15 L RBC 4.02 L Hgb 12.6 L Hct 37.5 L MCV 93.3 MCH 31.3 H MCHC 33.6 RDW Coeff of Luis Daniel 15.3 H Plt Count 119 L Immature Gran % (Auto) 0.2 Neut % (Auto) 51.4 Lymph % (Auto) 29.4 [place] % (Auto) 10.6 H Eos % (Auto) 6.5 Baso % (Auto) 1.9 Neut # (Auto) 2.1 Lymph # (Auto) 1.2 [place] # (Auto) 0.4 Eos # (Auto) 0.3 Baso # (Auto) 0.1 Immature Gran # (Auto) 0.0 Sodium 140.5 Potassium 3.55 Chloride 110.2 H Carbon Dioxide 26.5 Anion Gap 7.35 BUN 10.4 Creatinine 0.89 Estimated GFR (MDRD) 85.00 BUN/Creatinine Ratio 11.68 Glucose 181.1 H Calcium 9.16 Total Bilirubin 4.16 H AST 37.3 ALT 23.0 Alkaline Phosphatase 61.1 Ammonia 29.6 53.7 H Total Protein 6.39 Albumin 3.64 Globulin 2.75 Albumin/Globulin Ratio 1.32 Discharge Instructions Discharge Planning: Discharge Planning > [address] Lynn Marin. Discharge Medications: Medications at Discharge (Home Meds & RX) Discharge Plan Discharge Discharge Orders: Discharge Patient (ONCE); Ordered 02/09/24 Ordered By: HANS DUKES Activity Restrictions/Additional Instructions: DISCHARGE TO HOME DIET: DIABETIC ACTIVITY: TOLERATED RECOMMEND NOT DRIVING DUE TO FLUCTUATING AMMONIA LEVELS F/U WITH Primary Care Provider AND GI STAY COMPLIANT WITH GI MEDS (Lactulose) [facility] REFERRAL M[facility], THEY WILL BE IN CONTACT WITH YOU TO INITIATE CARE. THEIR NUMBER IS [phone]. Instructions: Hepatic Encephalopathy (GEN) Patient Disposition: HOME SELF-CARE Prescriptions: Continued pravastatin [Pravachol] 80 MG tablet 80 mg PO QPM Jardiance 10 mg tablet 10 mg PO DAILY tamsulosin 0.4 mg capsule 0.4 mg PO DAILY cholecalciferol (vitamin D3) 25 mcg (1,000 unit) capsule 25 mcg PO DAILY Xifaxan 550 mg tablet 550 mg PO Q12H metoprolol tartrate 50 mg Tablet 75 mg PO BID Qty: 60 0RF losartan 100 mg tablet 100 mg PO DAILY pantoprazole 40 mg tablet,delayed release (DR/EC) 40 mg PO BID metformin 1,000 mg tablet 1,000 mg PO BID cetirizine [24Hour Allergy] 10 mg tablet 10 mg PO DAILY PRN (Reason: allergy symptoms) thiamine HCl (vitamin B1) [Vitamin B-1] 100 mg tablet 100 mg PO DAILY lactulose 10 gram/15 mL (15 mL) solution 20 g PO BID Qty: 1800 0RF allopurinol 100 mg Tablet 100 mg PO DAILY Did you review [place] [employer] ADMINISTRATOR for ALL controlled substances?: Not Applicable Discussed opioids are addictive and Narcan is available by prescription or from pharmacy.: No Condition: Stable
== END 2024-02-09 11:00 | disposition home or self-care (01) | DRG 442 ==
LOC: MEDSURG B 13:26 → ED 13:26 → MEDSURG B 20:42
PROVIDERS: ADMIT Hospitalist; ATTEND Physician Assistant

== ENCOUNTER 2025-03-20 15:19 | Inpatient (IN) ==
[2025-03-20 17:09] LABS: IMMATURE GRANULOCYTE # (AUTO) 0.0 (0.0-1.0); IMMATURE GRANULOCYTE % (AUTO) 0.4 % (0.0-5.0); RDW COEFFICIENT OF VARIATION 16.2 % (11.6-14.8)
[2025-03-20 17:25] LABS: CREATININE 1.14 mg/dL (0.60-1.10)
--- NOTE | 2025-03-20 18:09 | CT ---
EXAM: CT HEAD WITHOUT CONTRAST. HISTORY: Altered mental status. COMPARISON: 12/02/2023 CT head. TECHNIQUE: Axial CT imaging of the brain was performed without contrast. Sagittal and coronal re-formations were obtained. FINDINGS: The rollins-white differentiation and sulcal detail are preserved. No acute large vessel distribution infarction, intracranial bleed or focal mass. The cerebral sulci are mildly enlarged. The ventricles are enlarged in size. There is no midline shift or mass effect. The basilar cisterns are patent. No displaced skull fracture. No air-fluid levels are seen in the paranasal sinuses. The mastoid air cells are well aerated. IMPRESSION: No acute intracranial process. All CT scans are performed using dose optimization techniques as appropriate to the performed exam and include at least one of the following: Automated exposure control, adjustment of the mA and/or kV according to size, and the use of iterative reconstruction technique.
[2025-03-20] MEDS ORDERED: ZOFRAN SDV IVP PRN (18:20)
--- NOTE | 2025-03-20 19:04 | ED.PDOC ---
General HPI ED Provider: Dr. MIRNA HEARD MD Chief Complaint: Altered Mental Status Stated Complaint: Patient is a 69-year-old male with a history of nonalcoholic liver cirrhosis and Alzheimer's dementia who is presenting for evaluation of altered mental status. Patient is alert and oriented x 2 and has difficulty with word finding. This limited obtain history from him fairly significantly but his sister and her were present at bedside and much history was obtained from them. They state that they has been speaking with him over the phone for the last 3 to 4 days and have noticed that he is having increasing difficulty with word finding and they feel was more confused than his baseline. [facility] staff are also who contacted EMS today out of concern for multiple staff members there who deal with the patient on daily basis that he is more confused over the last 3 days as well. Patient did deny having any fever, chest pain, shortness of breath, productive cough, dysuria, or increased urinary frequency. Family did note that he recently had a washout of his left knee for "infection "2 months ago and completed a 6-week antibiotic course several weeks ago. He has not been having any pain in his knee since then. Time Seen by Provider: 03/20/25 16:34 Mode of Arrival: Ambulance Information Source: Patient and Family Exam Limitations: Dementia and Altered mental status Primary Care Provider: PATTY VELAZQUEZ Nursing and Triage Documentation Reviewed and Agree: Yes Opioid Naive vs. Tolerant What is Opioid Naive?: *Opioid Naive implies the patient is not already taking opioids or not chronically receiving opioids on a daily basis. *PRN dosing is not "usually" associated with tolerance. *Patients are at higher risk of over-sedation and aspiration. What is Opioid Tolerant?: *Opioid Tolerance implies less than the expected response to an opioid. *Acquired tolerance is defined by the patient taking 60mg of oral morphine daily (or equianalgesic dose of another opioid) for 1 week or more. *Often associated with chronic pain. *May take more than usual dose to achieve desired pain control. Review of Systems Review Of Systems Constitutional: Denies Fever Respiratory: Denies Cough Cardiac: Denies Chest pain GI: Reports No symptoms : Denies Dysuria or Frequency Neurological: Denies Headache PFSH PFSH Medical History Failure of fundoplication Esophagogasatric Fundoplication: History of tif procedure with GI bleed. K91.89 - Other postprocedural complications and disorders of digestive system (ICD-10) Hypertension I10 - Essential (primary) hypertension (ICD-10) Hyperlipidemia E78.5 - Hyperlipidemia, unspecified (ICD-10) Fatty liver K76.0 - Fatty (change of) liver, not elsewhere classified (ICD-10) Diabetes mellitus E11.9 - Type 2 diabetes mellitus without complications (ICD-10) Arthritis M19.90 - Unspecified osteoarthritis, unspecified site (ICD-10) Social History Smoking and tobacco status: Former smoker Surgical History History of fundoplication Z98.890 - Other specified postprocedural states (ICD-10) H/O endoscopy Z98.890 - Other specified postprocedural states (ICD-10) History of cardiac catheterization WNL Z98.890 - Other specified postprocedural states (ICD-10) Physical Exam Physical Exam Appearance: Reports No pain distress Ill-appearing: None Pain Distress: None Eyes: Reports CASI, EOMI and Other (Icterus is present bilaterally) ENT: Denies Rhinorrhea or Dry mucosa Neck: Supple Respiratory: Reports Airway patent, Breath sounds clear and Breath sounds equal; Denies Crackles or Rhonchi Cardiovascular: Reports RRR and Pulses normal GI/: Reports Soft and Nontender Musculoskeletal: Reports Normal strength and Other (Left knee has a postoperative surgical scar that is well-healed without any surrounding erythema. There is no increased warmth over edema of the joint. No tenderness to palpation.) Neurological: Reports Sensation intact, Motor intact, Cranial nerves intact, Alert, Oriented (Patient is oriented to name and place but believes the year is 2057) and Other (Patient is able to follow basic commands and does answer questions appropriately aside from the year. He does have some word finding difficulty. He does not have signs of asterixis.) Physician Progress Note Physician Progress Note: Patient is a 69-year-old male that is presenting for evaluation of altered mental status in the setting of a history of nonalcoholic liver cirrhosis and Alzheimer's dementia. Patient is alert and oriented x 2 but is unclear what his baseline is as he does have a history of Alzheimer's dementia. I did speak with the sister present at bedside and she informing that she along with several members at his shelter believe he has had more confusion and word finding difficulty over the last 3 days. History obtained by the patient was not suggestive of an underlying infectious etiology although it was mentioned that he had a elevated glucose level on labs obtained yesterday. DKA versus HHS is therefore also on differential though of lower clinical likelihood given his overall clinical picture. Electrolyte abnormality also on differential such as hyponatremia or hyponatremia. We will obtain CT head to ensure there are no signs of hydrocephalus or other acute intracranial pathology although have a low suspicion given his benign neurologic examination aside from his isolated altered mental status. CT head/brain without contrast did not show any evidence of an acute intracranial pathology per the interpretation of the radiologist. These images were also reviewed by me and I do not see any findings of acute intracranial pathology either. CBC showed a mild anemia of 11.6 but this is the patient's baseline when reviewing external records and has fact improved compared to his prior. There is no leukocytosis to suggest an underlying infectious etiology to his symptoms. He has a mild thrombocytopenia of 132,000 which is improved compared to his prior and likely related to his liver disease. There are no significant electrolyte abnormalities aside from a very mild hypomagnesemia at 1.52. Glucose was elevated at 307 but there are no signs of metabolic acidosis that would suggest DKA or HHS. We did obtain ammonia level given his history of hepatic encephalopathy and it was at a 65. This is actually a downtrend from his level of 95 around 2 weeks ago and I do not have any findings of asterixis on examination, however, the family and medical staff noted the patient are reporting a change in his mentation and I therefore do believe the patient needs an ops admission for possible hepatic encephalopathy and trending of his ammonia levels. I discussed this with the patient's sister Rosa Maria Faulkner who is his healthcare surrogate. She was amenable to this plan. She is requesting updates tomorrow and her phone number is [phone]. Course Course 03/20/25 17:00 03/20/25 17:00 Orders, Labs, Meds: Lab Review 03/20/25 17:00 WBC 5.47 RBC 3.66 L Hgb 11.6 L Hct 33.1 L MCV 90.4 MCH 31.7 H MCHC 35.0 RDW Coeff of Luis Daniel 16.2 H Plt Count 132 L Immature Gran % (Auto) 0.4 Neut % (Auto) 45.5 Lymph % (Auto) 34.4 [place] % (Auto) 10.4 H Eos % (Auto) 7.3 H Baso % (Auto) 2.0 Neut # (Auto) 2.5 Lymph # (Auto) 1.9 [place] # (Auto) 0.6 Eos # (Auto) 0.4 Baso # (Auto) 0.1 Immature Gran # (Auto) 0.0 Sodium 135.8 Potassium 4.43 Chloride 105.7 Carbon Dioxide 27.3 Anion Gap 7.23 BUN 22.6 H Creatinine 1.14 H Estimated GFR (MDRD) 64.00 BUN/Creatinine Ratio 19.82 Glucose 307.1 H D Calcium 9.29 Magnesium 1.52 L Total Bilirubin 3.92 H AST 40.0 ALT 27.9 Alkaline Phosphatase 77.9 Ammonia 65.0 H Total Protein 5.88 L Albumin 2.97 L Globulin 2.91 Albumin/Globulin Ratio 1.02 Orders Category Date Time Status PLACE PATIENT OBSERVATION .TO MEDSURG (NON-MONITORED ADMISSION 03/20/25 18:29 Active BED) ACCUCHECK (MED/SURG, SCU) [BLOOD GLUCOSE MONITORING ( CARE 03/20/25 19:28 Active MED/SURG)] ACCUCHECK Q6H ACTIVITY .Up With Assistance CARE 03/20/25 18:20 Active INTAKE & OUTPUT Q8HR CARE 03/20/25 18:21 Active IP: INSERT SALINE LOCK ONCE CARE 03/20/25 18:30 Active TELEMETRY MONITORING TELE CARE 03/20/25 18:30 Active VITAL SIGNS Q4HR CARE 03/20/25 18:21 Active CARDIAC DIET DIETARY 03/20/25 Dinner Ordered AMMONIA DAILY@0600 LAB 03/21/25 06:00 Ordered AMMONIA DAILY@0600 LAB 03/22/25 06:00 Ordered AMMONIA Stat LAB 03/20/25 17:00 Completed CBC W/ AUTO DIFF DAILY@0600 LAB 03/21/25 06:00 Ordered CBC W/ AUTO DIFF DAILY@0600 LAB 03/22/25 06:00 Ordered CBC W/ AUTO DIFF Stat LAB 03/20/25 17:00 Completed CMP [COMPREHENSIVE METABOLIC PANEL] Stat LAB 03/20/25 17:00 Completed COMPREHENSIVE METABOLIC PANEL DAILY@0600 LAB 03/21/25 06:00 Ordered COMPREHENSIVE METABOLIC PANEL DAILY@0600 LAB 03/22/25 06:00 Ordered MAGNESIUM DAILY@0600 LAB 03/21/25 06:00 Ordered MAGNESIUM DAILY@0600 LAB 03/22/25 06:00 Ordered MAGNESIUM Stat LAB 03/20/25 17:00 Completed URINALYSIS C & S IF INDICATED Stat LAB 03/20/25 18:20 Uncollected Insulin Lispro [Humalog (10 ml Vial)] Meds 03/20/25 19:28 Active See Protocol SUBCUT PRN PRN Lactulose Meds 03/20/25 18:23 Discontinued 40 gm PO ONCE ONE Magnesium Sulfate in Water [Magnesium Sulf 2 G/50 ml Meds 03/20/25 18:29 Active Bag] 2 gm in 50 ml IV ONCE Ondansetron HCl/Pf [Zofran Sdv] Meds 03/20/25 18:20 Active 4 mg IVP Q6H PRN RESUSCITATION STATUS Routine OTHERS 03/20/25 18:[address] HEAD W/O CONTRAST Stat RADS 03/20/25 16:53 Completed Medications Generic Name Dose Route Start Last Admin Trade Name Freq PRN Reason Stop Dose Admin MAGNESIUM SULFATE IN WATER 2 gm in 50 mls @ 25 mls/hr 03/20/25 18:29 Magnesium Sulf 2 G/50 Ml Bag IV 03/20/25 20:28 ONCE ONE Insulin Human Lispro 0 unit 03/20/25 19:28 Insulin Lispro 100 Unit/Ml (10 Ml Vial) SUBCUT PRN PRN Hyperglycemia Protocol Ondansetron HCl 4 mg 03/20/25 18:20 Ondansetron Hcl/Pf 4 Mg/2 Ml Sdv IVP Q6H PRN Nausea / Vomiting Discontinued Medications Generic Name Dose Route Start Last Admin Trade Name Freq PRN Reason Stop Dose Admin Lactulose 40 gm 03/20/25 18:23 Lactulose 20 Gm/30 Ml Cup PO 03/20/25 18:24 ONCE ONE Vital Signs: Temp Pulse Resp BP Pulse Ox 03/20/25 16:18 96.1 F L 64 20 138/67 99 Discharge Plan Discharge Patient Disposition: PLACED OBSERVATION Discharge Problem: Hyperammonemia Did you review [place] [employer]OG TENDER for ALL controlled substances?: Not Applicable ED Provider: MIRNA HEARD
[2025-03-20] MEDS ORDERED: DULOXETINE 20 MG PO SCH (21:00)
[2025-03-20] MEDS: LACTULOSE PO ONE (21:15)
[2025-03-20] MEDS: MAGNESIUM SULF 2 G/50 ML BAG 2 GM/50 ML PIGGYBACK IV ONE (21:15)
[2025-03-20 21:46] VITALS: BMI 23.2
[2025-03-20] MEDS: LOPRESSOR PO SCH (22:19)
[2025-03-20] MEDS: CYMBALTA ONE (22:19)
[2025-03-20] MEDS: XIFAXAN PO SCH (22:19)
[2025-03-20] MEDS: FLOMAX PO SCH (22:20)
[2025-03-20] MEDS: PROTONIX PO SCH (22:20)
[2025-03-20] MEDS: PRAVACHOL PO SCH (22:21)
[2025-03-20] MEDS: LACTULOSE ONE (22:22)
[2025-03-20 23:48] LABS: GLUCOSE, URINE (UA) 1+ (NEGATIVE); LEUKOCYTE ESTERASE ,URINE Negative (NEGATIVE); URINE, BLOOD Negative (NEGATIVE)
[2025-03-20 23:50] LABS: URINE WBC, MICROSCOPIC 0-2 (0-2)
[2025-03-21] MEDS: LACTULOSE PO SCH ×3 (00:56→22:52)
[2025-03-21 05:12] LABS: IMMATURE GRANULOCYTE # (AUTO) 0.0 (0.0-1.0); IMMATURE GRANULOCYTE % (AUTO) 0.2 % (0.0-5.0); RDW COEFFICIENT OF VARIATION 16.2 % (11.6-14.8)
[2025-03-21 05:24] LABS: CREATININE 0.92 mg/dL (0.60-1.10)
[2025-03-21] MEDS: ALDACTONE PO SCH (08:24)
[2025-03-21] MEDS: VITAMIN D PO SCH (08:24)
[2025-03-21] MEDS: ZYLOPRIM PO SCH (08:24)
[2025-03-21] MEDS: ZYRTEC PO SCH (08:24)
[2025-03-21] MEDS: THIAMINE PO SCH (08:24)
[2025-03-21] MEDS ORDERED: CORGARD PO SCH (09:00)
--- NOTE | 2025-03-21 09:25 | PCM ---
Date of Service Date Seen by Provider: 03/21/25 Time Seen by Provider: 08:30 Admit Day/Time Admission Date: 03/20/25 Admission Time: 18:29 Reason for Admission Chief Complaint: ACUTE HEPATIC EUCEPHALOPATHY Hospital Provider Hospital Provider: HANS DUKES PA-C, [facility] [place] Primary Care Physician Primary Care Physician: PATTY VELAZQUEZ History of Present Illness History of Present Illness: Patient is a 69 year old male with pmhx of cirrhosis s/p TIPS, hypertension, hyperlipidemia, DM, recent knee infection s/p IV antibiotics, who presents to ER with cc of confusion. [facility]. He was noted to become more lethargic and confused over the last 3 days. He has had multiple hospitalizations in past 1 year for hepatic encephalopathy. In ER, CT head negative. UA negative. Labs overall unremarkable except for his baseline liver disease and his ammonia level was 65. Pt takes lactulose and xifaxin chronically. Will admit to [facility]. Patient had 1 BM overnight. He is oriented to self only. Does not answer questions appropriately. Unable to tell me about his recent knee infection. Unable to tell me where he resides. However he is alert and very slowly eating his breakfast. Will reach out to [facility] to see what his baseline is. Case Discussed With Case Discussed With: Patient's case was discussed with the ER Physicians, Dr. Pratt. [facility] Medical History Failure of fundoplication Esophagogasatric Fundoplication: History of tif procedure with GI bleed. K91.89 - Other postprocedural complications and disorders of digestive system (ICD-10) Hypertension I10 - Essential (primary) hypertension (ICD-10) Hyperlipidemia E78.5 - Hyperlipidemia, unspecified (ICD-10) Fatty liver K76.0 - Fatty (change of) liver, not elsewhere classified (ICD-10) Diabetes mellitus E11.9 - Type 2 diabetes mellitus without complications (ICD-10) Arthritis M19.90 - Unspecified osteoarthritis, unspecified site (ICD-10) Surgical History History of fundoplication Z98.890 - Other specified postprocedural states (ICD-10) H/O endoscopy Z98.890 - Other specified postprocedural states (ICD-10) History of cardiac catheterization WNL Z98.890 - Other specified postprocedural states (ICD-10) Social History Smoking and tobacco status: Former smoker Allergies Allergies Allergy/AdvReac Type Severity Reaction Status Date / Time No Known Allergies Allergy Verified 03/20/25 16:44 Current Medications Home Medications Allopurinol (Allopurinol 100 Mg Tablet) [address] [facility] Last Admin: 03/21/25 08:24 Dose: 100 mg Cetirizine HCl (Cetirizine Hcl 10 Mg Tablet) [address] [facility] Last Admin: 03/21/25 08:24 Dose: 10 mg Cholecalciferol (Cholecalciferol (Vitamin D3) 1,000 Unit (25 Mcg) Tablet) 1,[address] [facility] Last Admin: 03/21/25 08:24 Dose: 1,000 unit Duloxetine HCl (Duloxetine Hcl 30 Mg Capsule.) [address] [facility] Insulin Human Lispro (Insulin Lispro 100 Unit/Ml (10 Ml Vial)) 0 unit SUBCUT PRN PRN; Protocol PRN Reason: Hyperglycemia Last Admin: 03/21/25 11:37 Dose: 4 unit Lactulose (Lactulose 20 Gm/30 Ml Cup) [address] [facility] Last Admin: 03/21/25 13:05 Dose: 40 gm Metoprolol Tartrate (Metoprolol Tartrate 50 Mg Tablet) [address] [facility] Last Admin: 03/21/25 08:25 Dose: 75 mg Non-Formulary Medication (Nadolol) [address] [facility] Last Admin: 03/21/25 11:37 Dose: 20 mg Ondansetron HCl (Ondansetron Hcl/Pf 4 Mg/2 Ml Sdv) 4 mg IVP Q6H PRN PRN Reason: Nausea / Vomiting Pantoprazole Sodium (Pantoprazole Sodium 40 Mg Tablet.Dr) [address] [facility] Last Admin: 03/21/25 05:00 Dose: 40 mg Pravastatin Sodium (Pravastatin Sodium 40 Mg Tablet) [address] [facility] Last Admin: 03/20/25 22:21 Dose: 80 mg Rifaximin (Rifaximin 550 Mg Tablet) [address] [facility] Stop: 03/23/25 20:59 Last Admin: 03/21/25 08:23 Dose: 550 mg Sodium Chloride (0.9% Sodium Chloride 10 Ml Disp.Syrin) 1 syr IVF PRN PRN PRN Reason: IV patency Spironolactone (Spironolactone 25 Mg Tablet) [address] [facility] Last Admin: 03/21/25 08:24 Dose: 50 mg Tamsulosin HCl (Tamsulosin Hcl 0.4 Mg Cap.Er.24h) 0.[address] [facility] Last Admin: 03/20/25 22:20 Dose: 0.4 mg Thiamine HCl (Vitamin B-1 100 Mg Tablet) [address] [facility] Last Admin: 03/21/25 08:24 Dose: 100 mg pravastatin 80 mg tablet (Pravachol) 80 mg PO QPM 08/16/13 [History Confirmed 03/20/25] allopurinol 100 mg tablet 100 mg PO DAILY 08/03/21 [History Confirmed 03/20/25] cholecalciferol (vitamin D3) 25 mcg (1,000 unit) capsule 25 mcg PO DAILY 08/15/23 [History Confirmed 03/20/25] rifaximin 550 mg tablet (Xifaxan) 550 mg PO Q12H 08/15/23 [History Confirmed 03/20/25] tamsulosin 0.4 mg capsule 0.4 mg PO .bed time 08/15/23 [History Confirmed 03/20/25] metoprolol tartrate 50 mg tablet 75 mg (1.5 x 50 mg) PO BID #60 tabs 08/18/23 [Rx Confirmed 03/20/25] cetirizine 10 mg tablet (24Hour Allergy) 10 mg PO DAILY allergy symptoms 12/02/23 [History Confirmed 03/20/25] pantoprazole 40 mg tablet,delayed release 40 mg PO BID 12/02/23 [History Confirmed 03/20/25] thiamine HCl (vitamin B1) 100 mg tablet (Vitamin B-1) 100 mg PO DAILY 12/02/23 [History Confirmed 03/20/25] acetaminophen 325 mg capsule 650 mg PO Q4H PRN fever or pain 11/28/24 [History Confirmed 03/20/25] bisacodyl 10 mg rectal suppository 10 mg DE DAILY PRN constipation 11/28/24 [History Confirmed 03/20/25] lactulose 10 gram/15 mL (15 mL) oral solution 40 g PO TID 11/28/24 [History Confirmed 03/20/25] magnesium hydroxide 400 mg/5 mL oral suspension (Milk of Magnesia) 30 ml PO Q8HR PRN constipation 11/28/24 [History Confirmed 03/20/25] ondansetron HCl 4 mg tablet 4 mg PO Q6H PRN nausea and vomiting 11/28/24 [History Confirmed 03/20/25] spironolactone 25 mg tablet 50 mg PO DAILY 11/28/24 [History Confirmed 03/20/25] aspirin 325 mg tablet 325 mg PO BID pain 03/20/25 [History Confirmed 03/20/25] docusate sodium 100 mg tablet 100 mg PO BID 03/20/25 [History Confirmed 03/20/25] duloxetine 20 mg capsule,delayed release 40 mg PO BEDTIME depression 03/20/25 [History Confirmed 03/20/25] hydrocortisone 2 % topical gel 1 applic topical DAILY HEMORRHOIDS 03/20/25 [History Confirmed 03/20/25] insulin lispro 100 unit/mL subcutaneous solution (Admelog U-100 Insulin lispro) 1 sliding scale dose subcut DIRECTED DM 03/20/25 [History Confirmed 03/20/25] nadolol 20 mg tablet 20 mg PO DAILY 03/20/25 [History Confirmed 03/20/25] naloxone 4 mg/actuation nasal spray (Narcan) 1 spray intranasal DAILY PRN ANTIDOTE 03/20/25 [History Confirmed 03/20/25] nadolol 20 mg tablet 20 mg PO DAILY 03/21/25 [History Confirmed 03/21/25] Opioid Naive vs. Tolerant Does Patient Take Opioids?: No Is Patient Opioid Naive?: Yes What is Opioid Naive?: *Opioid Naive implies the patient is not already taking opioids or not chronically receiving opioids on a daily basis. *PRN dosing is not "usually" associated with tolerance. *Patients are at higher risk of over-sedation and aspiration. Is Patient Opioid Tolerant?: No What is Opioid Tolerant?: *Opioid Tolerance implies less than the expected response to an opioid. *Acquired tolerance is defined by the patient taking 60mg of oral morphine daily (or equianalgesic dose of another opioid) for 1 week or more. *Often associated with chronic pain. *May take more than usual dose to achieve desired pain control. Review of Systems Constitutional: Reports Fatigue Head: Reports Normocephalic and Atraumatic Cardiovascular: Denies Chest pain Respiratory: Denies Shortness of air Gastrointestinal: Denies Abdominal pain Neurological: Reports Other (+confusion ); Denies Dizziness or Syncope Physical examination Most Recent Vital Signs: Most Recent Vital Signs Temperature 96.5 F L 03/21/25 05:04 Temperature Source Tympanic 03/21/25 01:01 Temperature Source Temporal Artery Scan 03/20/25 16:18 Pulse Rate 61 03/21/25 05:04 Respiratory Rate 16 03/21/25 05:04 Blood Pressure 134/73 03/21/25 05:04 Blood Pressure Mean 93 03/21/25 05:04 Blood Pressure Left Arm 138/69 03/20/25 20:15 Blood Pressure Location Left Arm 03/21/25 05:04 Blood Pressure Position Supine 03/21/25 05:04 O2 Sat by Pulse Oximetry 98 03/21/25 05:04 Oxygen Delivery Method Room Air 03/21/25 09:00 Height 6 ft 03/20/25 20:15 Weight 77.6 kg 03/20/25 20:15 Telemetry Heart Rate 51 L 02/09/24 06:55 Appearance: Positive No Apparent Distress and Other (+chronically ill appearing. Alert. Oriented to self only. ) Skin: Positive [place], Warm and Good Turgor HEENT: Positive Normocephalic and Atraumatic Neck: Positive Supple and Midline Trachea Chest/Lungs: Positive Clear to Auscultation Bilaterally; Negative Rales, Rhonci or Wheezes Heart: Positive RRR GI/: Positive Soft, Nontender, Bowel Sounds Normal and No Distention Extremities: Positive Other (left knee - no erythema, swelling, or drainage noted. ); Negative Edema Neurological: Positive Alert, Disorinted and Other (+generalized weakness. Follows basic commands. Very slow intentional movements. ) Psychiatric: Positive Other (Alert, oriented to self only, flat affect, slow moving ) Labs This Visit Labs This Visit: Labs This Visit 03/20/25 03/20/25 03/21/25 17:00 22:55 05:10 WBC 5.47 5.12 RBC 3.66 L 3.62 L Hgb 11.6 L 11.6 L Hct 33.1 L 32.6 L MCV 90.4 90.1 MCH 31.7 H 32.0 H MCHC 35.0 35.6 H RDW Coeff of Luis Daniel 16.2 H 16.2 H Plt Count 132 L 134 L Immature Gran % (Auto) 0.4 0.2 Neut % (Auto) 45.5 50.4 Lymph % (Auto) 34.4 28.5 Isabella % (Auto) 10.4 H 10.0 Eos % (Auto) 7.3 H 8.8 H Baso % (Auto) 2.0 2.1 Neut # (Auto) 2.5 2.6 Lymph # (Auto) 1.9 1.5 Isabella # (Auto) 0.6 0.5 Eos # (Auto) 0.4 0.5 Baso # (Auto) 0.1 0.1 Immature Gran # (Auto) 0.0 0.0 Sodium 135.8 137.9 Potassium 4.43 3.85 Chloride 105.7 109.8 H Carbon Dioxide 27.3 24.9 Anion Gap 7.23 7.05 BUN 22.6 H 20.1 H Creatinine 1.14 H 0.92 Estimated GFR (MDRD) 64.00 82.00 BUN/Creatinine Ratio 19.82 21.84 Glucose 307.1 H D 197.7 H D Calcium 9.29 9.15 Magnesium 1.52 L 1.74 Total Bilirubin 3.92 H 4.20 H AST 40.0 43.0 ALT 27.9 27.7 Alkaline Phosphatase 77.9 76.0 Ammonia 65.0 H 48.2 H Total Protein 5.88 L 5.72 L Albumin 2.97 L 2.83 L Globulin 2.91 2.89 Albumin/Globulin Ratio 1.02 0.97 Urine Color Red Urine Clarity Clear Urine pH 5.5 Ur Specific Anthony 1.025 Urine Protein Negative Urine Glucose (UA) 1+ H Urine Ketones 1+ H Urine Blood Negative Urine Nitrite Negative Urine Bilirubin 1+ H Urine Urobilinogen 2.0 H Ur Leukocyte Esterase Negative Urine Microscopic RBC 2-5 Urine Microscopic WBC 0-2 Ur Squamous Epith Cells 2-5 Imaging Imaging: EXAM: CT HEAD WITHOUT CONTRAST. HISTORY: Altered mental status. COMPARISON: 12/02/2023 CT head. TECHNIQUE: Axial CT imaging of the brain was performed without contrast. Sagittal and coronal re-formations were obtained. FINDINGS: The rollins-white differentiation and sulcal detail are preserved. No acute large vessel distribution infarction, intracranial bleed or focal mass. The cerebral sulci are mildly enlarged. The ventricles are enlarged in size. There is no midline shift or mass effect. The basilar cisterns are patent. No displaced skull fracture. No air-fluid levels are seen in the paranasal sinuses. The mastoid air cells are well aerated. IMPRESSION: No acute intracranial process. Review Statement Review Statement: I have independently reviewed and interpreted the labs/EKGs/imaging that were ordered by the ER provider. I have reviewed all outside records that are available currently in our EMR including imaging/notes/labs from previous visits. Plan Plan: 1. Acute hepatic encephalopathy in setting of cirrhosis - Cont xifaxin, cont lactulose q4hrs until having 2-3 BMs, then will back off. Repeat ammonia level in AM. Reach out to PA for baseline mentation/activity. 2. Chronic cirrhosis with secondary varices - Follows with GI in [place]. 3. BPH - Cont home meds 4. GERD - Cont home meds 5. DM - Humalog sliding scale ordered, accuchecks achs 6. Gout - Cont home meds DVT Prophylaxis: Will avoid lovenox due to chronic thrombocytopenia, will do SCDs Time Spent: Greater than 80 minutes spent with patient, 50% of the time spent with this patient was devoted to counseling and coordination of care. [facility] minutes spent discussing advance care planning. Admit to: Make inpatient today Discussed Plan of Care with Dr. Lynn Marin. Medications Medication Orders: Medications Ordered Category Date Time Status 0.9 % Sodium Chloride [Saline Flush] Meds 03/21/25 04:12 Active 1 syr IVF PRN PRN Allopurinol [Zyloprim] Meds 03/21/25 09:00 Active 100 mg PO DAILY Cetirizine HCl [Zyrtec] Meds 03/21/25 09:00 Active 10 mg PO DAILY Cholecalciferol (Vitamin D3) [Vitamin D] Meds 03/21/25 09:00 Active 1,000 unit PO DAILY Duloxetine HCl [Cymbalta] Meds 03/21/25 21:00 Active 30 mg PO BEDTIME Insulin Lispro [Humalog (10 ml Vial)] Meds 03/20/25 19:28 Active See Protocol SUBCUT PRN PRN Lactulose Meds 03/21/25 01:00 Active 40 gm PO Q4H Metoprolol Tartrate [Lopressor] Meds 03/20/25 21:00 Active 75 mg PO BID Nadolol [Corgard] Meds 03/21/25 09:00 Active 20 mg PO DAILY Ondansetron HCl/Pf [Zofran Sdv] Meds 03/20/25 18:20 Active 4 mg IVP Q6H PRN Pantoprazole Sodium [Protonix] Meds 03/20/25 21:00 Active 40 mg PO BIDAC2 Pravastatin Sodium [Pravachol] Meds 03/20/25 21:00 Active 80 mg PO QPM Rifaximin [Xifaxan] Meds 03/20/25 21:00 Active 550 mg PO Q12H Spironolactone [Aldactone] Meds 03/21/25 09:00 Active 50 mg PO DAILY Tamsulosin HCl [Flomax] Meds 03/20/25 21:00 Active 0.4 mg PO BEDTIME Vitamin B-1 [Thiamine] Meds 03/21/25 09:00 Active 100 mg PO DAILY
[2025-03-21] MEDS: NADOLOL 20 MG PO SCH (11:37)
[2025-03-21] MEDS: HUMALOG (10 ML VIAL) SUBCUT PRN (11:37)
[2025-03-21] MEDS: CYMBALTA PO SCH (21:30)
[2025-03-22 05:26] LABS: IMMATURE GRANULOCYTE # (AUTO) 0.0 (0.0-1.0); IMMATURE GRANULOCYTE % (AUTO) 0.2 % (0.0-5.0); RDW COEFFICIENT OF VARIATION 16.3 % (11.6-14.8)
[2025-03-22 05:36] LABS: INR 1.15 SI (0.0-3.9)
[2025-03-22 05:39] LABS: CREATININE 0.94 mg/dL (0.60-1.10)
[2025-03-22] MEDS: MAGNESIUM SULF 2 G/50 ML BAG 2 GM/50 ML PIGGYBACK IV ONE (08:40)
--- NOTE | 2025-03-22 11:25 | PCM.PROG ---
Date/Time Seen Date Seen by Provider: 03/22/25 Time Seen by Provider: 08:40 Provider Provider: HANS DUKES PA-C, [facility] Chief Complaint Chief Complaint: ACUTE HEPATIC EUCEPHALOPATHY Subjective Subjective: Patient is oriented to person and place today. More interactive and answering questions more appropriately. He even tried to joke with this provider. He is still very slow moving. He appears very weak. Objective Appearance: Positive No Apparent Distress and Other (+chronically ill appearing. ) Chest/Lungs: Positive Clear to Auscultation Bilaterally; Negative Rales, Rhonci or Wheezes Heart: Positive RRR GI/: Positive Soft, Nontender, Bowel Sounds Normal and No Distention Neurological: Positive Alert, Disorinted and Other (+generalized weakness ) Vital Signs Vital Signs: Vital Signs: Last 24 Hours 03/21/25 13:00 03/21/25 13:55 03/21/25 18:00 Temperature 96.8 F L 97.6 F Temperature Source Temporal Artery Scan Temporal Artery Scan Pulse Rate 66 64 Respiratory Rate 16 20 Blood Pressure 138/59 L 146/70 H Blood Pressure Mean 85 95 Blood Pressure Location Left Arm Left Arm Blood Pressure Position Supine Supine O2 Sat by Pulse Oximetry 100 97 Oxygen Delivery Method Room Air Room Air Telemetry Type Remote Telemetry Telemetry Monitoring Started Telemetry Heart Rate 67 EKG TN Interval 0.18 EKG QRS Interval 0.12 H Telemetry Strip Reading NSR with BBB 03/21/25 19:00 03/21/25 19:40 03/21/25 21:16 Temperature 97 F L Temperature Source Temporal Artery Scan Pulse Rate 65 Respiratory Rate 18 Blood Pressure 104/84 Blood Pressure Mean 90 Blood Pressure Location Left Arm Blood Pressure Position Supine O2 Sat by Pulse Oximetry 96 Oxygen Delivery Method Room Air Room Air Telemetry Type Remote Telemetry Telemetry Monitoring Continues Telemetry Heart Rate 69 EKG TN Interval 0.20 EKG QRS Interval 0.14 H Telemetry Strip Reading SR WITH BBB 03/22/25 01:00 03/22/25 02:00 03/22/25 05:34 Temperature 97.8 F 97.0 F L Temperature Source Temporal Artery Scan Temporal Artery Scan Pulse Rate 62 66 Respiratory Rate 18 18 Blood Pressure 112/80 141/80 H Blood Pressure Mean 90 100 Blood Pressure Location Right Arm Left Arm Blood Pressure Position Supine Supine O2 Sat by Pulse Oximetry 95 98 Oxygen Delivery Method Room Air Room Air Telemetry Type Remote Telemetry Telemetry Monitoring Continues Telemetry Heart Rate 62 EKG TN Interval 0.20 EKG QRS Interval 0.14 H Telemetry Strip Reading SR WITH BBB 03/22/25 10:00 Temperature 96.6 F L Temperature Source Temporal Artery Scan Pulse Rate 64 Respiratory Rate 16 Blood Pressure 126/79 Blood Pressure Mean 94 Blood Pressure Location Left Arm Blood Pressure Position O2 Sat by Pulse Oximetry 100 Oxygen Delivery Method Room Air Telemetry Type Telemetry Monitoring Telemetry Heart Rate EKG TN Interval EKG QRS Interval Telemetry Strip Reading Lab Results Lab Results: Lab Results: Last 24 Hours 03/22/25 05:02 WBC 6.27 RBC 3.90 L Hgb 12.5 L Hct 35.6 L MCV 91.3 MCH 32.1 H MCHC 35.1 RDW Coeff of Luis Daniel 16.3 H Plt Count 139 L Immature Gran % (Auto) 0.2 Neut % (Auto) 52.9 Lymph % (Auto) 27.8 Harlan % (Auto) 10.4 H Eos % (Auto) 6.5 Baso % (Auto) 2.2 Neut # (Auto) 3.3 Lymph # (Auto) 1.7 Harlan # (Auto) 0.7 Eos # (Auto) 0.4 Baso # (Auto) 0.1 Immature Gran # (Auto) 0.0 PT 11.9 H INR 1.15 Sodium 138.9 Potassium 3.84 Chloride 111.0 H Carbon Dioxide 24.0 Anion Gap 7.74 BUN 17.1 Creatinine 0.94 Estimated GFR (MDRD) 80.00 BUN/Creatinine Ratio 18.19 Glucose 198.6 H Calcium 9.37 Magnesium 1.50 L Total Bilirubin 3.88 H AST 44.8 ALT 32.0 Alkaline Phosphatase 77.8 Ammonia 20.8 Total Protein 5.98 L Albumin 2.99 L Globulin 2.99 Albumin/Globulin Ratio 1.00 Additional Comments Additional Comments: I have independently reviewed and interpreted the labs/EKGs/imaging ordered during this hospital stay. I have reviewed outside records that are available in our EMR that pertain to medical stay including imaging/notes/labs from previous visits. Active Medications Active Medications: Medications Generic Name Dose Route Start Last Admin Trade Name Freq PRN Reason Stop Dose Admin Allopurinol 100 mg 03/21/25 09:00 03/22/25 09:39 Allopurinol 100 Mg Tablet PO 100 mg DAILY JACQUELYN Administration Cetirizine HCl 10 mg 03/21/25 09:00 03/22/25 09:37 Cetirizine Hcl 10 Mg Tablet PO 10 mg DAILY JACQUELYN Administration Cholecalciferol 1,000 unit 03/21/25 09:00 03/22/25 09:39 Cholecalciferol (Vitamin D3) 1,000 Unit (25 Mcg) Tablet PO 1,000 unit DAILY JACQUELYN Administration Duloxetine HCl 30 mg 03/21/25 21:00 03/21/25 21:30 Duloxetine Hcl 30 Mg Capsule.Dr PO 30 mg BEDTIME JACQUELYN Administration Insulin Human Lispro 0 unit 03/20/25 19:28 03/21/25 23:08 Insulin Lispro 100 Unit/Ml (10 Ml Vial) SUBCUT 4 unit PRN PRN Administration Hyperglycemia Protocol Lactulose 40 gm 03/21/25 23:00 03/22/25 05:19 Lactulose 20 Gm/30 Ml Cup PO 40 gm Q6H JACQUELYN Administration Metoprolol Tartrate 75 mg 03/20/25 21:00 03/22/25 09:38 Metoprolol Tartrate 50 Mg Tablet PO 75 mg BID JACQUELYN Administration Non-Formulary Medication 20 mg 03/21/25 11:10 03/22/25 09:40 Nadolol PO 20 mg DAILY JACQUELYN Administration Ondansetron HCl 4 mg 03/20/25 18:20 Ondansetron Hcl/Pf 4 Mg/2 Ml Sdv IVP Q6H PRN Nausea / Vomiting Pantoprazole Sodium 40 mg 03/20/25 21:00 03/22/25 05:19 Pantoprazole Sodium 40 Mg Tablet.Dr PO 40 mg BIDAC2 JACQUELYN Administration Pravastatin Sodium 80 mg 03/20/25 21:00 03/21/25 17:35 Pravastatin Sodium 40 Mg Tablet PO 80 mg QPM JACQUELYN Administration Rifaximin 550 mg 03/20/25 21:00 03/22/25 09:38 Rifaximin 550 Mg Tablet PO 03/23/25 20:59 550 mg Q12H JACQUELYN Administration Sodium Chloride 1 syr 03/21/25 21:00 03/22/25 05:30 0.9% Sodium Chloride 10 Ml Disp.Syrin IVF 1 syr Q8H JACQUELYN Administration Spironolactone 50 mg 03/21/25 09:00 03/22/25 09:40 Spironolactone 25 Mg Tablet PO 50 mg DAILY JACQUELYN Administration Tamsulosin HCl 0.4 mg 03/20/25 21:00 03/21/25 21:30 Tamsulosin Hcl 0.4 Mg Cap.Er.24h PO 0.4 mg BEDTIME JACQUELYN Administration Thiamine HCl 100 mg 03/21/25 09:00 03/22/25 09:39 Vitamin B-1 100 Mg Tablet PO 100 mg DAILY JACQUELYN Administration Plan Plan: 1. Acute hepatic encephalopathy in setting of cirrhosis - Improved, Cont xifaxin, cont lactulose q6hrs until having 2-3 BMs, will titrate. Repeat ammonia level in AM. 2. Chronic cirrhosis with secondary varices - Follows with GI in [place]. 3. BPH - Cont home meds 4. GERD - Cont home meds 5. DM - Humalog sliding scale ordered, accuchecks achs 6. Gout - Cont home meds 7. Hypomagnesemia - Replace w 2 gm rider today DVT Prophylaxis: Will avoid lovenox due to chronic thrombocytopenia, will do SCDs Review Statement Review Statement: I have personally discussed and reviewed the patient's visit/currently labs/imaging/decision making with Dr. Marin, my supervising attending. Greater that 50 minutes spent with patient, 50% of the time spent with this patient was devoted to counseling and coordination of care.
[2025-03-23 05:42] LABS: IMMATURE GRANULOCYTE # (AUTO) 0.0 (0.0-1.0); IMMATURE GRANULOCYTE % (AUTO) 0.3 % (0.0-5.0); RDW COEFFICIENT OF VARIATION 16.1 % (11.6-14.8)
[2025-03-23 05:52] LABS: INR 1.19 SI (0.0-3.9)
[2025-03-23 05:54] LABS: CREATININE 1.03 mg/dL (0.60-1.10)
--- NOTE | 2025-03-23 09:37 | PCM.PROG ---
Date/Time Seen Date Seen by Provider: 03/23/25 Time Seen by Provider: 08:40 Provider Provider: HANS DUKES PA-C, [facility] Chief Complaint Chief Complaint: ACUTE HEPATIC EUCEPHALOPATHY Subjective Subjective: Patient feeling good today, no complaints. Ammonia much improved. Monitoring BMs. Objective Appearance: Positive No Apparent Distress and Other (+chronically ill appearing. Alert, oriented to self and place. ) Chest/Lungs: Positive Clear to Auscultation Bilaterally; Negative Rales, Rhonci or Wheezes Heart: Positive RRR GI/: Positive Soft, Nontender, Bowel Sounds Normal and No Distention Neurological: Positive Alert, Disorinted and Other (+generalized weakness ) Vital Signs Vital Signs: Vital Signs: Last 24 Hours 03/22/25 10:00 03/22/25 13:00 03/22/25 14:00 Temperature 96.6 F L 96.4 F L Temperature Source Temporal Artery Scan Temporal Artery Scan Pulse Rate 64 66 Respiratory Rate 16 14 Blood Pressure 126/79 140/77 Blood Pressure Mean 94 98 Blood Pressure Location Left Arm Left Arm Blood Pressure Position O2 Sat by Pulse Oximetry 100 98 Oxygen Delivery Method Room Air Room Air Telemetry Type Remote Telemetry Telemetry Monitoring Continues Telemetry Heart Rate 66 EKG SC Interval 0.22 H EKG QRS Interval 0.15 H Telemetry Strip Reading SR WITH BBB AND 1ST DEGREE AVB 03/22/25 18:00 03/22/25 19:00 03/22/25 21:15 Temperature 96.2 F L 97.4 F L Temperature Source Temporal Artery Scan Temporal Artery Scan Pulse Rate 63 65 Respiratory Rate 16 18 Blood Pressure 155/76 H 124/77 Blood Pressure Mean 102 92 Blood Pressure Location Left Arm Right Arm Blood Pressure Position Supine O2 Sat by Pulse Oximetry 99 94 L Oxygen Delivery Method Room Air Room Air Telemetry Type Remote Telemetry Telemetry Monitoring Continues Telemetry Heart Rate 62 EKG SC Interval 0.18 EKG QRS Interval 0.15 H Telemetry Strip Reading SR W/ BBB 03/23/25 01:00 03/23/25 02:00 03/23/25 04:47 Temperature 97.5 F L 96.5 F L Temperature Source Temporal Artery Scan Temporal Artery Scan Pulse Rate 62 72 Respiratory Rate 18 18 Blood Pressure 119/87 95/61 Blood Pressure Mean 97 72 Blood Pressure Location Right Arm Right Arm Blood Pressure Position Supine Supine O2 Sat by Pulse Oximetry 95 96 Oxygen Delivery Method Room Air Room Air Telemetry Type Remote Telemetry Telemetry Monitoring Continues Telemetry Heart Rate 63 EKG SC Interval 0.22 H EKG QRS Interval 0.15 H Telemetry Strip Reading SR W/BBB AND 1ST DEGREE AVB Lab Results Lab Results: Lab Results: Last 24 Hours 03/23/25 05:15 WBC 6.87 RBC 3.92 L Hgb 12.5 L Hct 35.9 L MCV 91.6 MCH 31.9 H MCHC 34.8 RDW Coeff of Luis Daniel 16.1 H Plt Count 139 L Immature Gran % (Auto) 0.3 Neut % (Auto) 52.7 Lymph % (Auto) 27.9 [place] % (Auto) 9.8 Eos % (Auto) 7.3 H Baso % (Auto) 2.0 Neut # (Auto) 3.6 Lymph # (Auto) 1.9 [place] # (Auto) 0.7 Eos # (Auto) 0.5 Baso # (Auto) 0.1 Immature Gran # (Auto) 0.0 PT 12.3 H INR 1.19 Sodium 134.6 Potassium 3.98 Chloride 106.8 Carbon Dioxide 24.2 Anion Gap 7.58 BUN 19.3 Creatinine 1.03 Estimated GFR (MDRD) 72.00 BUN/Creatinine Ratio 18.73 Glucose 215.2 H Calcium 9.49 Total Bilirubin 3.22 H AST 52.3 ALT 35.8 Alkaline Phosphatase 79.5 Ammonia < 8.7 L Total Protein 5.94 L Albumin 3.00 L Globulin 2.94 Albumin/Globulin Ratio 1.02 Additional Comments Additional Comments: I have independently reviewed and interpreted the labs/EKGs/imaging ordered during this hospital stay. I have reviewed outside records that are available in our EMR that pertain to medical stay including imaging/notes/labs from previous visits. Active Medications Active Medications: Medications Generic Name Dose Route Start Last Admin Trade Name Freq PRN Reason Stop Dose Admin Allopurinol 100 mg 03/21/25 09:00 03/23/25 08:31 Allopurinol 100 Mg Tablet PO 100 mg DAILY JACQUELYN Administration Cetirizine HCl 10 mg 03/21/25 09:00 03/23/25 08:31 Cetirizine Hcl 10 Mg Tablet PO 10 mg DAILY JACQUELYN Administration Cholecalciferol 1,000 unit 03/21/25 09:00 03/23/25 08:32 Cholecalciferol (Vitamin D3) 1,000 Unit (25 Mcg) Tablet PO 1,000 unit DAILY JACQUELYN Administration Duloxetine HCl 30 mg 03/21/25 21:00 03/22/25 20:01 Duloxetine Hcl 30 Mg Capsule. PO 30 mg BEDTIME JACQUELYN Administration Insulin Human Lispro 0 unit 03/20/25 19:28 03/23/25 06:05 Insulin Lispro 100 Unit/Ml (10 Ml Vial) SUBCUT 2 unit PRN PRN Administration Hyperglycemia Protocol Lactulose 40 gm 03/21/25 23:00 03/23/25 05:20 Lactulose 20 Gm/30 Ml Cup PO 40 gm Q6H JACQUELYN Administration Metoprolol Tartrate 75 mg 03/20/25 21:00 03/23/25 08:29 Metoprolol Tartrate 50 Mg Tablet PO 75 mg BID JACQUELYN Administration Non-Formulary Medication 20 mg 03/21/25 11:10 03/23/25 08:36 Nadolol PO 20 mg DAILY JACQUELYN Administration Ondansetron HCl 4 mg 03/20/25 18:20 Ondansetron Hcl/Pf 4 Mg/2 Ml Sdv IVP Q6H PRN Nausea / Vomiting Pantoprazole Sodium 40 mg 03/20/25 21:00 03/23/25 05:20 Pantoprazole Sodium 40 Mg Tablet. PO 40 mg BIDAC2 JACQUELYN Administration Pravastatin Sodium 80 mg 03/20/25 21:00 03/22/25 16:26 Pravastatin Sodium 40 Mg Tablet PO 80 mg QPM JACQUELYN Administration Rifaximin 550 mg 03/20/25 21:00 03/23/25 08:28 Rifaximin 550 Mg Tablet PO 03/23/25 20:59 550 mg Q12H JACQUELYN Administration Sodium Chloride 1 syr 03/21/25 21:00 03/23/25 05:20 0.9% Sodium Chloride 10 Ml Disp.Syrin IVF 1 syr Q8H JACQUELYN Administration Spironolactone 50 mg 03/21/25 09:00 03/23/25 08:27 Spironolactone 25 Mg Tablet PO 50 mg DAILY JACQUELYN Administration Tamsulosin HCl 0.4 mg 03/20/25 21:00 03/22/25 20:01 Tamsulosin Hcl 0.4 Mg Cap.Er.24h PO 0.4 mg BEDTIME JACQUELYN Administration Thiamine HCl 100 mg 03/21/25 09:00 03/23/25 08:31 Vitamin B-1 100 Mg Tablet PO 100 mg DAILY JACQUELYN Administration Plan Plan: 1. Acute hepatic encephalopathy in setting of cirrhosis - Improved, Cont xifaxin, cont lactulose q6hrs until having 2-3 BMs, will titrate. 2. Chronic cirrhosis with secondary varices - Follows with GI in [place]. 3. BPH - Cont home meds 4. GERD - Cont home meds 5. DM - Humalog sliding scale ordered, accuchecks achs 6. Gout - Cont home meds 7. Hypomagnesemia - Replaced w 2 gm rider 03/22. DVT Prophylaxis: Will avoid lovenox due to chronic thrombocytopenia, will do SCDs Review Statement Review Statement: I have personally discussed and reviewed the patient's visit/currently labs/imaging/decision making with Dr. Marin, my supervising attending. Greater that 50 minutes spent with patient, 50% of the time spent with this yoni ent was devoted to counseling and coordination of care.
[2025-03-23] MEDS: LACTULOSE PO SCH (20:07)
[2025-03-23 21:38] VITALS: RESP 18
[2025-03-24 05:25] LABS: IMMATURE GRANULOCYTE # (AUTO) 0.0 (0.0-1.0); IMMATURE GRANULOCYTE % (AUTO) 0.3 % (0.0-5.0); RDW COEFFICIENT OF VARIATION 15.8 % (11.6-14.8)
[2025-03-24 05:34] VITALS: BP 137/77; PULSE 72; TEMP 97
[2025-03-24 05:41] LABS: CREATININE 0.97 mg/dL (0.60-1.10)
--- NOTE | 2025-03-24 08:48 | DCSUM ---
Admission Date Admission Date: 03/20/25 Discharge Date Discharge Date: 03/24/25 Admission Diagnosis Admission Diagnosis: 1. Acute hepatic encephalopathy in setting of cirrhosis Discharge Diagnosis Discharge Diagnosis: 1. Acute hepatic encephalopathy in setting of cirrhosis - resolved 2. Chronic cirrhosis with secondary varices 3. BPH 4. GERD 5. DM 6. Gout 7. Hypomagnesemia - Replaced Hospital Provider Hospital Provider: HANS DUKES PA-C, [facility] Primary Care Physician Primary Care Physician: PATTY VELAZQUEZ Summary of History and Physical Summary of History and Physical: Patient is a 69 year old male with pmhx of cirrhosis s/p TIPS, hypertension, hyperlipidemia, DM, recent knee infection s/p IV antibiotics, who presents to ER with cc of confusion. Patient has [facility] residing at local [facility]. He was noted to become more lethargic and confused over the last 3 days. He has had multiple hospitalizations in past 1 year for hepatic encephalopathy. In ER, CT head negative. UA negative. Labs overall unremarkable except for his baseline liver disease and his ammonia level was 65. Pt takes lactulose and xifaxin chronically. Will admit to [facility]. Patient had 1 BM overnight. He is oriented to self only. Does not answer questions appropriately. Unable to tell me about his recent knee infection. Carrie ble to tell me where he resides. However he is alert and very slowly eating his breakfast. Will reach out to retirement to see what his baseline is. Hospital Course Subjective: Patient was treated with lactulose and ammonia levels improved, worsened today but patient is still at his baseline clinically, no change in last couple days. He is alert, oriented to person and place, making jokes with staff. He had 3 documented stools yesterday. This can continue to be monitored at the retirement and adjust lactulose dose as needed. He is reluctant to take it at times and requires encouraging. He would benefit from skilled rehab as well as he is generally weak and certainly a decline since our last visit with him a year ago. Appearance: Pleasant, No Apparent Distress and Alert HEENT: MMM CVS: Other (RRR) Abdomen: Soft, Non-Tender and No Distention Respiratory: No Accessory Muscle Use Extremities: No Edema Additional Findings: +oriented to person and place, much more interactive since admission Vital Signs: Most Recent Vital Signs Temperature 97 F L 03/24/25 05:33 Temperature Source Temporal Artery Scan 03/24/25 05:33 Temperature Source Temporal Artery Scan 03/20/25 16:18 Pulse Rate 72 03/24/25 05:33 Respiratory Rate 18 03/24/25 05:33 Blood Pressure 137/77 03/24/25 05:33 Blood Pressure Mean 97 03/24/25 05:33 Blood Pressure Left Arm 138/69 03/20/25 20:15 Blood Pressure Location Right Arm 03/24/25 05:33 Blood Pressure Position Supine 03/24/25 05:33 O2 Sat by Pulse Oximetry 95 03/24/25 05:33 Oxygen Delivery Method Room Air 03/24/25 05:33 Height 6 ft 03/20/25 20:15 Weight 77.6 kg 03/20/25 20:15 Telemetry Type Remote Telemetry 03/24/25 01:00 Telemetry Monitoring Continues 03/24/25 01:00 Telemetry Heart Rate 69 03/24/25 01:00 EKG MI Interval 0.20 03/24/25 01:00 EKG QRS Interval 0.15 H 03/24/25 01:00 Telemetry Strip Reading SR w/ BBB 03/24/25 01:00 Imaging: EXAM: CT HEAD WITHOUT CONTRAST. HISTORY: Altered mental status. COMPARISON: 12/02/2023 CT head. TECHNIQUE: Axial CT imaging of the brain was performed without contrast. Sagittal and coronal re-formations were obtained. FINDINGS: The rollins-white differentiation and sulcal detail are preserved. No acute large vessel distribution infarction, intracranial bleed or focal mass. The cerebral sulci are mildly enlarged. The ventricles are enlarged in size. There is no midline shift or mass effect. The basilar cisterns are patent. No displaced skull fracture. No air-fluid levels are seen in the paranasal sinuses. The mastoid air cells are well aerated. IMPRESSION: No acute intracranial process. Lab Results Last 24 Hours: 03/24/25 05:03 WBC 6.78 RBC 3.55 L Hgb 11.5 L Hct 31.6 L MCV 89.0 MCH 32.4 H MCHC 36.4 H RDW Coeff of Luis Daniel 15.8 H Plt Count 127 L Immature Gran % (Auto) 0.3 Neut % (Auto) 52.9 Lymph % (Auto) 27.1 [place] % (Auto) 10.8 H Eos % (Auto) 7.1 H Baso % (Auto) 1.8 Neut # (Auto) 3.6 Lymph # (Auto) 1.8 [place] # (Auto) 0.7 Eos # (Auto) 0.5 Baso # (Auto) 0.1 Immature Gran # (Auto) 0.0 Sodium 134.2 L Potassium 3.84 Chloride 105.8 Carbon Dioxide 25.3 Anion Gap 6.94 BUN 20.5 H Creatinine 0.97 Estimated GFR (MDRD) 77.00 BUN/Creatinine Ratio 21.13 Glucose 221.0 H Calcium 9.05 Total Bilirubin 2.23 H AST 63.9 H ALT 42.6 Alkaline Phosphatase 85.9 Ammonia 51.4 H Total Protein 5.43 L Albumin 2.65 L Globulin 2.78 Albumin/Globulin Ratio 0.95 Discharge Instructions Discharge Planning: Discharge Planning > [address] Lynn Marin. Discharge Medications: Medications at Discharge (Home Meds & RX) pravastatin 80 mg tablet (Pravachol) 80 mg PO QPM 08/16/13 allopurinol 100 mg tablet 100 mg PO DAILY 08/03/21 cholecalciferol (vitamin D3) 25 mcg (1,000 unit) capsule 25 mcg PO DAILY 08/15/23 rifaximin 550 mg tablet (Xifaxan) 550 mg PO Q12H 08/15/23 tamsulosin 0.4 mg capsule 0.4 mg PO .bed time 08/15/23 metoprolol tartrate 50 mg tablet 75 mg (1.5 x 50 mg) PO BID #60 tabs 08/18/23 cetirizine 10 mg tablet (24Hour Allergy) 10 mg PO DAILY allergy symptoms pantoprazole 40 mg tablet,delayed release 40 mg PO BID 12/02/23 thiamine HCl (vitamin B1) 100 mg tablet (Vitamin B-1) 100 mg PO DAILY 12/02/23 acetaminophen 325 mg capsule 650 mg PO Q4H PRN fever or pain 11/28/24 bisacodyl 10 mg rectal suppository 10 mg MI DAILY PRN constipation 11/28/24 lactulose 10 gram/15 mL (15 mL) oral solution 40 g PO TID 11/28/24 magnesium hydroxide 400 mg/5 mL oral suspension (Milk of Magnesia) 30 ml PO Q8HR PRN constipation 11/28/24 ondansetron HCl 4 mg tablet 4 mg PO Q6H PRN nausea and vomiting 11/28/24 spironolactone 25 mg tablet 50 mg PO DAILY 11/28/24 docusate sodium 100 mg tablet 100 mg PO BID 03/20/25 duloxetine 20 mg capsule,delayed release 40 mg PO BEDTIME depression 03/20/25 hydrocortisone 2 % topical gel 1 applic topical DAILY HEMORRHOIDS 03/20/25 insulin lispro 100 unit/mL subcutaneous solution (Admelog U-100 Insulin lispro) 1 sliding scale dose subcut DIRECTED DM 03/20/25 nadolol 20 mg tablet 20 mg PO DAILY 03/20/25 naloxone 4 mg/actuation nasal spray (Narcan) 1 spray intranasal DAILY PRN ANTIDOTE 03/20/25 aspirin 325 mg tablet 325 mg PO BID PRN pain #1 tab 03/24/25 Discharge Plan Discharge Discharge Orders: Discharge Patient (ONCE); Ordered 03/24/25 Ordered By: HANS DUKES Activity Restrictions/Additional Instructions: DISCHARGE TO SNF DX: ACUTE HEPATIC ENCEPHALOPATHY LACTULOSE TID, TITRATE TO ENSURE 2-3 BM'S PER DAY PATIENT WOULD BENEFIT FROM SKILLED REHAB DIET: DIABETIC ACTIVITY: FALL PRECAUTIONS, PTOT Patient Disposition: TRANSFER SNF Prescriptions: Continued pravastatin [Pravachol] 80 MG tablet 80 mg PO QPM tamsulosin 0.4 mg capsule 0.4 mg PO .bed time cholecalciferol (vitamin D3) 25 mcg (1,000 unit) capsule 25 mcg PO DAILY Xifaxan 550 mg tablet 550 mg PO Q12H metoprolol tartrate 50 mg Tablet 75 mg PO BID Qty: 60 0RF pantoprazole 40 mg tablet,delayed release (DR/EC) 40 mg PO BID cetirizine [24Hour Allergy] 10 mg tablet 10 mg PO DAILY thiamine HCl (vitamin B1) [Vitamin B-1] 100 mg tablet 100 mg PO DAILY docusate sodium 100 mg tablet 100 mg PO BID duloxetine 20 mg capsule,delayed release(DR/EC) 40 mg PO BEDTIME insulin lispro [Admelog U-100 Insulin lispro] 100 unit/mL solution 1 sliding scale dose subcut DIRECTED Patient Comments: 150-200=2 units, 201-250=4 units, 251-300= 6 units, 301-350=8 units, 351-400= 10 units sub q before meals and at bedtime hydrocortisone 2 % gel 1 applic topical DAILY nadolol 20 mg tablet 20 mg PO DAILY naloxone [Narcan] 4 mg/actuation spray,non-aerosol 1 spray intranasal DAILY PRN (Reason: ANTIDOTE) allopurinol 100 mg Tablet 100 mg PO DAILY acetaminophen 325 mg capsule 650 mg PO Q4H PRN (Reason: fever or pain) ondansetron HCl 4 mg tablet 4 mg PO Q6H PRN (Reason: nausea and vomiting) spironolactone 25 mg tablet 50 mg PO DAILY magnesium hydroxide [Milk of Magnesia] 400 mg/5 mL suspension 30 ml PO Q8HR PRN (Reason: constipation) bisacodyl 10 mg suppository 10 mg MI DAILY PRN (Reason: constipation) lactulose 10 gram/15 mL (15 mL) solution 40 g PO TID Changed aspirin 325 mg tablet 325 mg PO BID PRN (Reason: pain) Qty: 1 0RF Discontinued nadolol 20 mg tablet 20 mg PO DAILY Did you review [place] PHARMACIST PER DIEM for ALL controlled substances?: Not Applicable Discussed opioids are addictive and Narcan is available by prescription or from pharmacy.: No Condition: Stable
== END 2025-03-24 10:35 | DRG 442 ==
LOC: ED 15:19 → MEDSURG B 15:19
PROVIDERS: ADMIT Hospitalist; ATTEND Physician Assistant